=== PATIENT | female | born 1945 | race Caucasian/White ===

== ENCOUNTER 2025-06-10 18:57 | Inpatient (IN) ==
--- NOTE | 2025-06-10 19:06 | Emergency Department Note ---
Impression & Plan Pneumonia, Rhinovirus infection, Generalized weakness ED Provider Note NAME: LOS MIKE AGE: 80 SEX: F : 1945 ARRIVES VIA: Ambulance INFORMANT: Patient ED PROVIDER(S): Pratik Jackson MD CHIEF COMPLAINT: Fatigue PLAN: Disposition: Admit MEDICAL DECISION MAKING: The patient is a pleasant 80-year-old woman with a past medical history of hypertension, GERD, fibromyalgia, arthritis atrial fibrillation not on anticoagulation, recurrent UTIs who presents to the emergency department via EMS for evaluation of generalized weakness and fatigue where she reports wanting to sleep all the time for the past 24 hours. Patient denies any headache, GI or symptoms. She reports she recently had a cystoscopy for evaluation of her chronic urinary tract infections. She was prescribed Macrobid prophylactically after her procedure. She denies any chest pain, shortness of breath, cough or congestion. On evaluation patient is no acute distress, afebrile with heart in the 110s and blood pressure 140s/80s and vital signs otherwise stable. She appears clinically dry. Lungs with subtle rhonchi of right lower lung randolph and otherwise clear. Normal respiratory effort. EKG without overt acute ischemia. CXR with patchy right lower lobe opacity suspicious for pneumonia per my personal preliminary review/interpretation. WBC 16.7 K with neutrophilia but no left shift, nonspecific. H/H and platelets within normal limits. Chemistry without metabolic acidosis. BUNs/creatinine 21 consistent with patient's clinically dry appearance. Lactic acid 1.1, within normal limits. LFTs unremarkable. High-sensitivity troponin 7.3, within normal limits. Lipase is not elevated. Procalcitonin is elevated at 1.06. TSH within normal limits. UA without evidence of infection. Respiratory bio was positive for enterovirus/rhinovirus. Blood culture obtained empiric treatment initiated for pneumonia with IV Zosyn and doxycycline. MRSA swab is pending. Patient does agree with plan for admission for further management. Case was [place] [facility] who will evaluate the patient for admission. Further management per admitting team. Triage Nursing notes reviewed and agree them. Prior/external medical records reviewed Vital Signs: reviewed Differential diagnosis: Infection, dehydration, metabolic abnormality, hypo/hyperglycemia, electrolyte disturbance, anemia, hypoxia, cardiac sources, intracerebral event, toxicologic, neurologic, as well as other pathologies. ER treatment provided: See below. Diagnostics interpreted by me: ECG: Atrial fibrillation, 103 bpm, no ectopy, no overt ST elevation or depression, QTc 419, QRS 94. Cardiac Monitoring: An order for continuous cardiac monitoring was placed and demonstrated Atrial fibrillation, 103 bpm, no ectopy. Laboratory studies: See below Imaging studies: See below Consultation(s): Case was discussed [place]. Ponce, [facility], who will evaluate the patient for admission. HPI: Per MDM. ROS: See above HPI for pertinent positives & negatives. A total of 10 systems reviewed and were otherwise negative. VITALS:See Below PHYSICAL EXAMINATION: GENERAL: Awake, alert, fatigued-appearing, in no distress HENT: Normocephalic, atraumatic. Oropharynx with dry mucous membranes and otherwise unremarkable. EYES: Normal conjunctiva. Sclera non-icteric. EOMI. No nystamgus. PEARRL. NECK: Supple. No nuchal rigidity. FROM. No JVD. RESPIRATORY: Rhonchi of right lower lung randolph and otherwise clear to auscultation. CARDIAC: Regular rate, irregular rhythm. Extremities warm and well perfused. Pulses equal. ABDOMEN: Soft, non-distended. No tenderness to palpation. No rebound or guarding. No masses. MUSCULOSKELETAL: Chest examination reveals no tenderness. The back is symmetrical on inspection without obvious abnormality. There is no CVA tenderness to palpation. No joint edema. LOWER EXTREMITIES: Calves are equal size bilaterally and non-tender. No edema. No discoloration. NEURO: Cranial nerves II-XII grossly intact. 5/5 strength and SILT x 4 extremities. Intact [id number], SKIN: No rash or jaundice noted. Pratik Jackson MD Past Med/Surg History Problem List (Updated 06/11/25 @ 02:18 by Pratik Jackson MD) Generalized weakness (Acute) Rhinovirus infection (Acute) Pneumonia (Acute) Hypomagnesemia Leukocytosis Right lower lobe pneumonia Renal cyst (Chronic) Cirrhosis Hyperbilirubinemia Raynaud's disease, idiopathic Incontinence (Chronic) Recurrent UTI (urinary tract infection) (Chronic) Lumbosacral radiculopathy Numbness and tingling of both feet B12 deficiency Facet arthritis of lumbar region Chronic back pain Varicose veins of both lower extremities Arthritis of left shoulder region Depression Obstructive sleep apnea T2DM (type 2 diabetes mellitus) Frequent urinary tract infections Anemia Multiple thyroid nodules Paroxysmal A-fib Barretts esophagus Anxiety Asthma Degenerative disc disease Fibromyalgia (Acute) GERD (gastroesophageal reflux disease) Hypertension Insomnia Vitamin D deficiency Medical History History of non-ST elevation myocardial infarction (NSTEMI) (07/2019) History of TIA (transient ischemic attack) (12/2023) History of breast cancer Surgical History S/P cataract extraction (2023) History of hand surgery Status post right breast lumpectomy (2001) History of cardioversion History of esophageal surgery S/P arthroscopy of right shoulder S/P tonsillectomy and adenoidectomy S/P cholecystectomy History of appendectomy S/P total hysterectomy and BSO (bilateral salpingo-oophorectomy) S/P bunionectomy S/P left knee arthroscopy (2018) Presence of Watchman left atrial appendage closure device (2016) S/P breast lumpectomy (09/2017) Family History Sister Colorectal cancer Mother Cancer Father Bone cancer Daughter Rheumatoid arthritis Denies family history of Ovarian cancer Prostate cancer Myocardial infarction Breast cancer Lung cancer Social History Smoking Status: Former smoker Tobacco Type: Cigarettes Age Started Using Tobacco: 19; Age Quit Using Tobacco: 27; packs per day: 0.25; Cigarettes Per Day: smoked on/ off for; could not give year amount; Second Hand Exposure: No; Do You Dip or Chew Tobacco: No; Hx Alcohol Use: No Hx Substance Use: No Preferred Language: [place] Communication Ability: Effective Visual Impairment: No Limitations Hearing Ability: Normal Physician Coding Specialist Required: No Beliefs That Will Affect Care: None marital status: Current Living Situation: Spouse Current Living Situation Comment: with spouse current occupational status: retired 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 How many Children do You have: 5 Other Information That Helps Us Care for You: No Feels Safe at Home: Hesitant to Answer Childhood Exposure to Second-Hand Smoke: No Diet: regular Diet Comment: soft food during the past year weight has: remained stable Dental Care, Regularly: No Physical Activity Frequency: Does not Exercise Physical Activity Frequency Comment: limited d/t body pain Seatbelt Use: always Sunscreen Use: Yes Assistive Devices: Cane, Denture - Upper, Denture - Lower and Walker Allergies Allergies Allergy/AdvReac Type Severity Reaction Status Date / Time amitriptyline Allergy Intermediate DIARRHEA Verified 04/10/25 10:45 AND ABD PAIN amoxicillin Allergy Intermediate DIARRHEA Verified 04/10/25 10:45 AND ABD PAIN cefuroxime Allergy Intermediate DIARRHEA Verified 04/10/25 10:45 AND ABD PAIN clavulanic acid Allergy Intermediate DIARRHEA Verified 04/10/25 10:45 AND ABD PAIN escitalopram [From Lexapro] Allergy Mild Dizziness Verified 04/10/25 10:45 adhesive Allergy Unknown SKIN RED Verified 04/10/25 10:45 AND WELTS clarithromycin Allergy Unknown SEVERE Verified 04/10/25 10:45 DIARRHEA AND ABD PAIN erythromycin base Allergy Unknown Unknown Verified 06/10/25 22:36 Macrolide Antibiotics Allergy Unknown SEVERE Verified 04/10/25 10:45 DIARRHEA AND ABD PAIN Sulfa (Sulfonamide Allergy Unknown RASH;DIFFICULTY Verified 04/10/25 10:45 Antibiotics) BREATHING tetracycline Allergy Unknown NAUSEA AND Verified 04/10/25 10:45 VOMITING Home Meds Home Medications Medication Instructions Recorded Confirmed albuterol sulfate 2.5 mg/3 mL 2.5 mg inhalation Q4H PRN 05/21/19 06/10/25 (0.083 %) solution for nebulization shortness of breath or wheezing cholecalciferol (vitamin D3) 50 2,000 units PO QAM 05/21/19 06/10/25 mcg (2,000 unit) capsule metoprolol succinate 50 mg 50 mg PO DAILY 12/19/20 06/10/25 tablet,extended release 24 hr rabeprazole 20 mg tablet,delayed 20 mg PO BID 12/31/22 06/10/25 release (AcipHex) clonidine HCl 0.1 mg tablet 0.1 mg PO TID PRN withdrawl 10/18/24 06/10/25 symptoms buprenorphine 300 mg/1.5 mL 300 mg subcut UD 06/10/25 06/10/25 solution,exten.rel.subcutaneous syringe (Sublocade) buprenorphine HCl 8 mg sublingual 4 mg sublingual BID 06/10/25 06/10/25 tablet vitamin B complex 1 tab PO DAILY 06/10/25 06/10/25 Previous Rx's Medication Instructions Recorded albuterol sulfate 90 mcg/actuation See Rx Instructions inhalation 11/02/22 aerosol inhaler (Ventolin HFA) .COMPLEX PRN shortness of breath or wheezing #18 grams famotidine 20 mg tablet (Pepcid) 20 mg PO BID #180 tabs 04/09/25 mirabegron 50 mg tablet,extended 50 mg PO DAILY #90 tabs 04/10/25 release 24 hr (Myrbetriq) nitrofurantoin macrocrystal 50 mg 50 mg PO Q24H #30 caps 06/04/25 capsule Results & Data (ED) Vital Signs Vital Signs - 24 hr 06/10/25 19:09 06/10/25 22:21 Temperature 36.8 C Temperature Source Oral Pulse Rate 112 H 104 H Pulse Rhythm Irregular Respiratory Rate 14 Respiratory Effort / Characteristics Non-Labored Spontaneous Respiratory Depth Normal Blood Pressure 145/89 H Blood Pressure Mean 107 Pulse Oximetry 98 Oxygen Delivery Method Room Air Sepsis Recent Fever Within 48 Hours No Sepsis New/Unexplained Change in Mental Status No Sepsis Action Taken by Nursing No Action Required Laboratory Data Attestation: I reviewed the patient's lab results. 06/10/25 19:42 06/10/25 19:42 Lab Results 06/10/25 06/10/25 06/10/25 Range/Units 19:40 19:42 20:00 WBC 16.72 H (4.8-10.8) K/ul RBC 4.41 (4.20-5.40) M/uL Hgb 12.1 (12.0-16.0) g/dl Hct 37.4 (37.0-47.0) % MCV 84.8 (80.0-100.0) fL MCH 27.4 (25.0-34.0) pg MCHC 32.4 (32.0-36.0) g/dL RDW Std Deviation 43.2 (36.4-46.3) fL RDW Coeff of Scooter 14.0 (11.5-14.5) % Plt Count 207 (130-400) K/uL MPV 9.9 (9.4-12.4) fL Immature Gran % (Auto) 0.3 % Neut % (Auto) 88.5 % Lymph % (Auto) 6.0 % [place] % (Auto) 5.0 % Eos % (Auto) 0.0 % Baso % (Auto) 0.2 % Neut # (Auto) 14.79 H (1.40-6.50) K/uL Lymph # (Auto) 1.00 L (1.20-3.40) K/uL [place] # (Auto) 0.84 H (0.11-0.59) K/uL Eos # (Auto) 0.00 (0.00-0.50) K/uL Baso # (Auto) 0.04 (0.00-0.20) K/uL Immature Gran # (Auto) 0.05 (0.01-0.20) K/uL PT Cancelled INR Cancelled Sodium 135 L (136-145) mmol/L Potassium 3.7 (3.5-5.1) mmol/L Chloride 101 (98-107) mmol/L Carbon Dioxide 26 (21-32) mmol/L Anion Gap 8 (3-11) BUN 20 (6-23) mg/dl Creatinine 0.93 (0.6-1.2) mg/dl Est Cr Clr Drug Dosing 37.5 ml/min eGFR 61.75 BUN/Creatinine Ratio 21.5 H (10-20) Glucose 140 H (70-99(Fasting)) mg/dl Calcium 9.2 (8.6-10.3) mg/dl Phosphorus 2.3 L (2.5-4.9) mg/dl Magnesium 1.6 L (1.7-2.4) mg/dl Total Bilirubin 3.0 H (0.2-1.0) mg/dl AST 36 (13-39) U/L ALT 29 (7-52) U/L Alkaline Phosphatase 67 (34-104) U/L Troponin I High Sens 7.3 (0-14) pg/ml Total Protein 6.6 (6.0-8.3) gm/dl Albumin 3.8 (3.4-5.0) gm/dl Globulin 2.8 (2.5-4.0) gm/dl Albumin/Globulin Ratio 1.4 (0.9-2) Lipase 5 L (11-82) U/L Procalcitonin 1.06 H (0-0.5) ng/ml TSH 0.835 (0.300-4.500) uIu/ml Urine Color Yellow Urine Appearance Clear (Clear) Urine pH 6.0 (4.5-7.5) Ur Specific [place] 1.010 (1.000-1.030) Urine Protein Negative (Negative) Urine Glucose (UA) Negative (Negative) Urine Ketones Negative (Negative) Urine Blood 1+ H (Negative) Urine Nitrite Negative (Negative) Urine Bilirubin Negative (Negative) Urine Urobilinogen Negative (Negative) Ur Leukocyte Esterase Negative (Negative) Urine WBC (Auto) 0-5 (0-5) /hpf Urine RBC (Auto) 0-2 (0-2) /hpf U Hyaline Cast (Auto) 0-2 (0-2) /lpf U Epithel Cells (Auto) 0-2 (0-2) /hpf Urine Bacteria (Auto) None Seen (None Seen) Urine Comment 06/10/25 Range/Units 21:11 WBC (4.8-10.8) K/ul RBC (4.20-5.40) M/uL Hgb (12.0-16.0) g/dl Hct (37.0-47.0) % MCV (80.0-100.0) fL MCH (25.0-34.0) pg MCHC (32.0-36.0) g/dL RDW Std Deviation (36.4-46.3) fL RDW Coeff of Scooter (11.5-14.5) % Plt Count (130-400) K/uL MPV (9.4-12.4) fL Immature Gran % (Auto) % Neut % (Auto) % Lymph % (Auto) % [place] % (Auto) % Eos % (Auto) % Baso % (Auto) % Neut # (Auto) (1.40-6.50) K/uL Lymph # (Auto) (1.20-3.40) K/uL [place] # (Auto) (0.11-0.59) K/uL Eos # (Auto) (0.00-0.50) K/uL Baso # (Auto) (0.00-0.20) K/uL Immature Gran # (Auto) (0.01-0.20) K/uL PT 11.9 INR 1.1 Sodium (136-145) mmol/L Potassium (3.5-5.1) mmol/L Chloride (98-107) mmol/L Carbon Dioxide (21-32) mmol/L Anion Gap (3-11) BUN (6-23) mg/dl Creatinine (0.6-1.2) mg/dl Est Cr Clr Drug Dosing ml/min eGFR BUN/Creatinine Ratio (10-20) Glucose (70-99(Fasting)) mg/dl Calcium (8.6-10.3) mg/dl Phosphorus (2.5-4.9) mg/dl Magnesium (1.7-2.4) mg/dl Total Bilirubin (0.2-1.0) mg/dl AST (13-39) U/L ALT (7-52) U/L Alkaline Phosphatase (34-104) U/L Troponin I High Sens (0-14) pg/ml Total Protein (6.0-8.3) gm/dl Albumin (3.4-5.0) gm/dl Globulin (2.5-4.0) gm/dl Albumin/Globulin Ratio (0.9-2) Lipase (11-82) U/L Procalcitonin (0-0.5) ng/ml TSH (0.300-4.500) uIu/ml Urine Color Urine Appearance (Clear) Urine pH (4.5-7.5) Ur Specific [place] (1.000-1.030) Urine Protein (Negative) Urine Glucose (UA) (Negative) Urine Ketones (Negative) Urine Blood (Negative) Urine Nitrite (Negative) Urine Bilirubin (Negative) Urine Urobilinogen (Negative) Ur Leukocyte Esterase (Negative) Urine WBC (Auto) (0-5) /hpf Urine RBC (Auto) (0-2) /hpf U Hyaline Cast (Auto) (0-2) /lpf U Epithel Cells (Auto) (0-2) /hpf Urine Bacteria (Auto) (None Seen) Urine Comment Administered Medications Discontinued Medications Sodium Chloride (Nss) 1,000 mls @ 999 mls/hr IV .Q1H1M ONE Stop: 06/10/25 20:22 Last Infusion: 06/10/25 21:10 Dose: Infused Documented By: Admin: 06/10/25 19:41 Dose: 999 mls/hr Documented By: JAMIE Acetaminophen (Ofirmev) 1,000 mg in 100 mls @ 400 mls/hr IV NOW STA Stop: 06/10/25 21:50 Last Infusion: 06/10/25 23:47 Dose: Infused Documented By: Admin: 06/10/25 22:19 Dose: 400 mls/hr Documented By: JAMIE Piperacillin Sod/Tazobactam Sod (Zosyn) 4.5 gm in 100 mls @ 200 mls/hr IV NOW ONE; Protocol Stop: 06/10/25 22:05 Last Infusion: 06/11/25 00:05 Dose: Infused Documented By: Admin: 06/10/25 23:23 Dose: 200 mls/hr Documented By: JAMIE Doxycycline Hyclate 100 mg/ (Dextrose) 100 mls @ 50 mls/hr IV NOW STA Stop: 06/10/25 23:35 Last Infusion: 06/11/25 02:07 Dose: Infused Documented By: Admin: 06/11/25 00:02 Dose: 50 mls/hr Documented By: JAMIE Magnesium Sulfate/Dextrose (Magnesium Sulfate / D5w) 1 gm in 100 mls @ 50 mls/hr IV Q2H [facility] Stop: 06/11/25 02:29 Last Infusion: 06/11/25 04:28 Dose: Infused Documented By: Admin: 06/11/25 02:17 Dose: 50 mls/hr Documented By: Infusion: 06/11/25 02:02 Dose: Infused Documented By: Admin: 06/11/25 00:02 Dose: 50 mls/hr Documented By: JAMIE Imaging Data Radiologist's Impression: Chest X-Ray 06/10/25 19:20 Chest radiograph, one view History: Chest pain Comparison: 04/25/2024 Findings: Single AP view of the chest performed. Cardiomegaly. There are new mild patchy nodular densities in the right lower lobe. Normal pulmonary vascularity. No evidence for lymphadenopathy. No visualized bony or soft tissue abnormality. Impression: New, mild patchy nodular densities in the right lower lobe, favored infectious. Electronically signed by Barrett Casey 06-10-2025 7:50 PM Discharge Plan Visit Data Chief Complaint: Illness Stated Complaint: HEADACHE ED Provider: Pratik Jackson Discharge Problem: Pneumonia, Rhinovirus infection, Generalized weakness Patient Disposition: Admitted As Inpatient Condition: Fair Discharge Instructions Interventions: ED Discharge Assessment Last Done: 06/10/25 22:57 Discharge Problem: Pneumonia Qualifiers: Pneumonia type: due to unspecified organism Laterality: right Lung location: l ower lobe of lung Qualified Code(s): J18.9 - Pneumonia, unspecified organism
[2025-06-10] MEDS: SODIUM CHLORIDE 0.9% 1,000 ML IV ONE (19:41)
--- NOTE | 2025-06-10 19:50 | XRay Report ---
Chest radiograph, one view History: Chest pain Comparison: 04/25/2024 Findings: Single AP view of the chest performed. Cardiomegaly. There are new mild patchy nodular densities in the right lower lobe. Normal pulmonary vascularity. No evidence for lymphadenopathy. No visualized bony or soft tissue abnormality. Impression: New, mild patchy nodular densities in the right lower lobe, favored infectious. Electronically signed by Barrett Casey 06-10-2025 7:50 PM
[2025-06-10 19:57] LABS: Hematocrit (blood only) 37.4 % (37.0-47.0); Hemoglobin 12.1 g/dl (12.0-16.0); Immature Granulocytes # (auto) 0.05 K/uL (0.01-0.20); Immature Granulocytes % (auto) 0.3 %; Mean Corpuscular Hemoglobin 27.4 pg (25.0-34.0); Mean Corpuscular Volume 84.8 fL (80.0-100.0); Platelet Count 207 K/uL (130-400); RDW Standard Deviation 43.2 fL (36.4-46.3); Red Blood Count 4.41 M/uL (4.20-5.40); White Blood Count 16.72 K/ul (4.8-10.8)
[2025-06-10 20:14] LABS: Alanine Aminotransferase 29.0 U/L (7-52); Albumin Globulin Ratio 1.4 (0.9-2); Albumin Level 3.8 gm/dl (3.4-5.0); Alkaline Phosphatase 67.0 U/L (34-104); Anion Gap 8.0 (3-11); Bilirubin,Total 3.0 mg/dl (0.2-1.0); Blood Urea Nitrogen 20.0 mg/dl (6-23); Calcium 9.2 mg/dl (8.6-10.3); Carbon Dioxide 26.0 mmol/L (21-32); Chloride 101.0 mmol/L (98-107); Creatinine Clr Calc Pharmacy 37.5 ml/min; Globulin 2.8 gm/dl (2.5-4.0); Glucose 140.0 mg/dl (70-99(Fasting)); Lipase 5.0 U/L (11-82); Magnesium 1.6 mg/dl (1.7-2.4); Potassium 3.7 mmol/L (3.5-5.1); Sodium 135.0 mmol/L (136-145); Total Protein 6.6 gm/dl (6.0-8.3)
[2025-06-10 20:29] LABS: Appearance Urine Clear (Clear); Glucose Urine UA Negative (Negative)
[2025-06-10 20:30] LABS: Thyroid Stimulating Hormone 0.835 uIu/ml (0.300-4.500)
[2025-06-10 20:46] LABS: Bacteria Urine Automated None Seen (None Seen); Cast Urine Automated 0-2 /lpf (0-2); Epithelial Cell Urine Auto 0-2 /hpf (0-2); RBC Urine Automated 0-2 /hpf (0-2); WBC Urine Automated 0-5 /hpf (0-5)
[2025-06-10 21:50] LABS: INR 1.1 (0.9-1.1); Prothrombin Time 11.9 Seconds (9.0-12.0)
[2025-06-10] MEDS: ACETAMINOPHEN 1,000 MG/100 ML VIAL IV STA (22:19)
--- NOTE | 2025-06-10 22:46 | History & Physical Report ---
Date of Service June 10, 2025 Assessment & Plan (1) Right lower lobe pneumonia: (2) Leukocytosis: (3) Hypomagnesemia: (4) Obstructive sleep apnea: (5) T2DM (type 2 diabetes mellitus): (6) Chronic back pain: (7) Barretts esophagus: (8) Paroxysmal A-fib: Plan 80 yo F who presents with increased lethargy, chills, and dyspnea who is found to have a RLL pneumonia #RLL Pneumonia with leukocytosis, possible aspiration - Admit to med/tele - VS per unit protocol - Diet - Carb consistent - OOB w/ assist - Change abx to Unasyn 3g q6 - Duonebs QIDR and q2 prn dyspnea/wheezing - Mucinex 600mg BID - Speech eval, appreciate input - Support O2 to keep sat >92% - Blood cultures ordered/collected x2 - PCT elevated - MRSA nares collected, pending - Trend labs with CBC, CMP in AM #Hypomagnesemia - Low at 1.6, replacement ordered - Repeat mag in AM #Chronic Afib - S/P watchman, not on ACT - [facility] - Continue Metoprolol Succ 50mg daily - VR elevated in setting of acute infection, monitor #Chronic back pain/fibromyalgia - Continue Buprenorphine #Urge incontinence - Continue mirabegron #Ayala's esophagus - Continue famotidine - Change rabeprazole to pantoprazole per hospital formulary VTE ppx - Lovenox 40mg sq daily to start in AM Code status - Full Above plan of care has been d/w Dr. Ponce who will also see and evaluate this patient. Further orders will be implemented as clinically warranted. History of Present Illness Chief Complaint: Lethargy Primary Care Provider: Ga Agarwal DO Crissy is an 80 yo F with a pmhx of chronic afib, DMT2 (diet controlled), Ayala's esophagus, chronic back pain, CAED, asthma and recurrent cystitis who presents to the ER accompanied by her family c/o increased lethargy over the past 48 hours. Pt reportedly notes increased fatigue, drowsiness over the past 48 hours. She has had c/o chills and increased dyspnea with exertional activities, but denies chest pain. She reports her has had a cough but she has not. She has not checked her temperature so is unsure if she actually had a true fever. She did endorse some GI illness including n/v about 2 weeks ago but none recently. She has a h/o Ayala's esophagus and underwent surgery in 2017. She has also had her esophagus dilated about 1 year ago and admittedly has some issues with swallowing and choking at times. In the ER this evening, she has a RLL infiltrate favoring infection as well as a leukocytosis with neutrophilic predominance and an elevated PCT. She was medicated with Zosyn and Doxycycline IV in the ER as well as received a dose of IV Ofirmev and NSS. She has been referred to hospital medicine team for further care. Allergies Allergy/AdvReac Type Severity Reaction Status Date / Time amitriptyline Allergy Intermediate DIARRHEA Verified 04/10/25 10:45 AND ABD PAIN amoxicillin Allergy Intermediate DIARRHEA Verified 04/10/25 10:45 AND ABD PAIN cefuroxime Allergy Intermediate DIARRHEA Verified 04/10/25 10:45 AND ABD PAIN clavulanic acid Allergy Intermediate DIARRHEA Verified 04/10/25 10:45 AND ABD PAIN escitalopram [From Lexapro] Allergy Mild Dizziness Verified 04/10/25 10:45 adhesive Allergy Unknown SKIN RED Verified 04/10/25 10:45 AND WELTS clarithromycin Allergy Unknown SEVERE Verified 04/10/25 10:45 DIARRHEA AND ABD PAIN erythromycin base Allergy Unknown Unknown Verified 06/10/25 22:36 Macrolide Antibiotics Allergy Unknown SEVERE Verified 04/10/25 10:45 DIARRHEA AND ABD PAIN Sulfa (Sulfonamide Allergy Unknown RASH;DIFFICULTY Verified 04/10/25 10:45 Antibiotics) BREATHING tetracycline Allergy Unknown NAUSEA AND Verified 04/10/25 10:45 VOMITING Home Medications Medication Instructions Recorded Confirmed Type albuterol sulfate 2.5 mg/3 mL 2.5 mg inhalation Q4H PRN 05/21/19 06/10/25 History (0.083 %) solution for nebulization shortness of breath or wheezing cholecalciferol (vitamin D3) 50 2,000 units PO QAM 05/21/19 06/10/25 History mcg (2,000 unit) capsule metoprolol succinate 50 mg 50 mg PO DAILY 12/19/20 06/10/25 History tablet,extended release 24 hr albuterol sulfate 90 mcg/actuation See Rx Instructions inhalation 11/02/22 06/10/25 Rx aerosol inhaler (Ventolin HFA) .COMPLEX PRN shortness of breath or wheezing #18 grams rabeprazole 20 mg tablet,delayed 20 mg PO BID 12/31/22 06/10/25 History release (AcipHex) clonidine HCl 0.1 mg tablet 0.1 mg PO TID PRN withdrawl 10/18/24 06/10/25 History symptoms famotidine 20 mg tablet (Pepcid) 20 mg PO BID #180 tabs 04/09/25 06/10/25 Rx mirabegron 50 mg tablet,extended 50 mg PO DAILY #90 tabs 04/10/25 06/10/25 Rx release 24 hr (Myrbetriq) nitrofurantoin macrocrystal 50 mg 50 mg PO Q24H #30 caps 06/04/25 06/10/25 Rx capsule buprenorphine 300 mg/1.5 mL 300 mg subcut UD 06/10/25 06/10/25 History solution,exten.rel.subcutaneous syringe (Sublocade) buprenorphine HCl 8 mg sublingual 4 mg sublingual BID 06/10/25 06/10/25 History tablet vitamin B complex 1 tab PO DAILY 06/10/25 06/10/25 History Past Med/Surg History Problem List (Updated 06/11/25 @ 02:18 by Pratik Jackson MD) Generalized weakness (Acute) Rhinovirus infection (Acute) Pneumonia (Acute) Hypomagnesemia Leukocytosis Right lower lobe pneumonia Renal cyst (Chronic) Cirrhosis Hyperbilirubinemia Raynaud's disease, idiopathic Incontinence (Chronic) Recurrent UTI (urinary tract infection) (Chronic) Lumbosacral radiculopathy Numbness and tingling of both feet B12 deficiency Facet arthritis of lumbar region Chronic back pain Varicose veins of both lower extremities Arthritis of left shoulder region Depression Obstructive sleep apnea T2DM (type 2 diabetes mellitus) Frequent urinary tract infections Anemia Multiple thyroid nodules Paroxysmal A-fib Barretts esophagus Anxiety Asthma Degenerative disc disease Fibromyalgia (Acute) GERD (gastroesophageal reflux disease) Hypertension Insomnia Vitamin D deficiency Medical History History of non-ST elevation myocardial infarction (NSTEMI) (07/2019) History of TIA (transient ischemic attack) (12/2023) History of breast cancer Surgical History S/P cataract extraction (2023) History of hand surgery Status post right breast lumpectomy (2001) History of cardioversion History of esophageal surgery S/P arthroscopy of right shoulder S/P tonsillectomy and adenoidectomy S/P cholecystectomy History of appendectomy S/P total hysterectomy and BSO (bilateral salpingo-oophorectomy) S/P bunionectomy S/P left knee arthroscopy (2018) Presence of Watchman left atrial appendage closure device (2016) S/P breast lumpectomy (09/2017) Family History Sister Colorectal cancer Mother Cancer Father Bone cancer Daughter Rheumatoid arthritis Denies family history of Ovarian cancer Prostate cancer Myocardial infarction Breast cancer Lung cancer Social History Smoking Status: Former smoker Tobacco Type: Cigarettes Age Started Using Tobacco: 19; Age Quit Using Tobacco: 27; packs per day: 0.25; Cigarettes Per Day: smoked on/ off for; could not give year amount; Second Hand Exposure: No; Do You Dip or Chew Tobacco: No; Hx Alcohol Use: No Hx Substance Use: No Preferred Language: Vietnamese Communication Ability: Effective Visual Impairment: No Limitations Hearing Ability: Normal Pomologist Required: No Beliefs That Will Affect Care: None marital status: Current Living Situation: Spouse Current Living Situation Comment: with spouse current occupational status: retired 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 How many Children do You have: 5 Other Information That Helps Us Care for You: No Feels Safe at Home: Hesitant to Answer Childhood Exposure to Second-Hand Smoke: No Diet: regular Diet Comment: soft food during the past year weight has: remained stable Dental Care, Regularly: No Physical Activity Frequency: Does not Exercise Physical Activity Frequency Comment: limited d/t body pain Seatbelt Use: always Sunscreen Use: Yes Assistive Devices: Cane, Denture - Upper, Denture - Lower and Walker Review of Systems 2 Review of Systems: All systems reviewed and are unremarkable except as noted in HPI and below. Denies fever, headache, nasal congestion, sore throat, cough, chest pain, orthopnea, PND, abdominal pain, n/v/d, constipation, dysuria, hematuria, frequency, back pain, joint pain or swelling, easy bruising or bleeding, skin lesions or rashes. Physical Exam 2 Physical Exam: GENERAL: 80 yo elderly WF. A&Ox3. No distress. EYES: EOMI. PERRLA. Anicteric. HENT: Moist mucous membranes. No cervical lymphadenopathy. LUNGS: Nonlabored. RLL crackles. No rhonchi or wheezes throughout. CARDIOVASCULAR: Irregular rate and rhythm ABDOMEN: Soft, non-tender and non-distended. BS normoactive x 4 quad. EXTREMITIES: No edema. Non-tender. Peripheral pulses +2/4. NEUROLOGIC: No focal neurological deficits. CN II-XII grossly intact. PSYCHIATRIC: Cooperative. Appropriate mood and affect. SKIN: Warm, dry, intact. No rashes or lesions. Results & Data Results & Data Vital Signs (Past 12 Hours) Vital Signs Temp Pulse Pulse Resp BP BP Pulse Ox 06/10/25 22:28 107 H 18 128/76 97 06/10/25 22:21 104 H 06/10/25 19:09 36.8 C 112 H 14 145/89 H 98 O2 Del Method 06/10/25 22:28 Room Air 06/10/25 22:21 06/10/25 19:09 Room Air Laboratory Results 06/10/25 19:42 06/10/25 19:42 Diagnostic Findings Chest X-Ray 06/10/25 19:20 Chest radiograph, one view History: Chest pain Comparison: 04/25/2024 Findings: Single AP view of the chest performed. Cardiomegaly. There are new mild patchy nodular densities in the right lower lobe. Normal pulmonary vascularity. No evidence for lymphadenopathy. No visualized bony or soft tissue abnormality. Impression: New, mild patchy nodular densities in the right lower lobe, favored infectious. Electronically signed by Barrett Casey 06-10-2025 7:50 PM Code Status & VTE Plan Code Status Full code - per discussion with patient and daughter VTE Prophylaxis Plan VTE Prophylaxis will be ordered: Yes Supervising Physician Co-Signing Physician Notes Attending addendum: I have physically seen this patient, have supervised the DIANA's activities, and agree with the H&P unless as otherwise noted. Assessment and Plan: The patient is an 80-year-old female with past medical history including liver cirrhosis, hyperbilirubinemia, idiopathic Raynaud's disease, recurrent UTI, CADE, diabetes mellitus type 2, PAF, asthma, GERD, and hypertension. She presented to the emergency department with increased lethargy, fevers, chills and dyspnea on exertion. Workup in the emergency department included WBC of 16.72, and chest x-ray suggestive of right lower lobe. [facility]. Right lower lobe pneumonia- WBC 16.72 with left shift Aspiration precautions Unasyn 3 g IV every 6 hours Duonebs every 4 hours while awake and every 2 hours when necessary. Mucinex 600 mg p.o. twice daily Consult speech therapy Oxygen titration to maintain pulse ox of at least 92% Follow-up blood cultures MRSA ordered and pending Serial laboratories as noted Hypomagnesemia- Magnesium 1.6 on admission Oral replacement Repeat laboratories in the a.m. Chronic atrial fibrillation/status post Watchman- Follows with Dr. Rodriguez at [facility] [place] Continue metoprolol Chronic pain syndrome/back pain/fibromyalgia- Continue buprenorphine once verified Ayala's esophagus/GERD- Continue famotidine Change rabeprazole to pantoprazole per formulary interchange Urge incontinence/recurrent UTIs- UA is negative Follow urine culture sensitivity Hold nitrofurantoin PG Care Time/CCT Total # of Minutes Spent Total Time Spent with Patient: Total time spent is greater than 50% in coordination of care (as documented) at patient's floor/unit and/or counseling patient: 78 minutes Coding Level of Care Code 55856 INT INP/OBS CARE 3/75MIN Diagnoses Right lower lobe pneumonia J18.9 Leukocytosis D72.829 Hypomagnesemia E83.42 Obstructive sleep apnea G47.33 T2DM (type 2 diabetes mellitus) E11.9 Chronic back pain M54.9; G89.29 Barretts esophagus K22.70 Paroxysmal A-fib I48.0
[2025-06-10] MEDS ORDERED: ACETAMINOPHEN 325 MG TAB PO PRN (22:57)
[2025-06-10] MEDS ORDERED: ONDANSETRON INJ 2 MG/ML 2 ML VIAL IV PRN (22:57)
[2025-06-10] MEDS: PIPERACILLIN/TAZOBACTAM 4.5 GM/100 ML BAG IV ONE (23:23)
[2025-06-10 23:34] LABS: Chlamydia pneumoniae PCR Not Detected (NotDetected); Coronavirus 229E PCR Not Detected (NotDetected); Coronavirus CoV-2 (COVID19)PCR Not Detected (NotDetected); Coronavirus HKU1 PCR Not Detected (NotDetected); Coronavirus NL63 PCR Not Detected (NotDetected); Coronavirus OC43PCR Not Detected (NotDetected); Human Metapneumovirus PCR Not Detected (NotDetected); Parainfluenza Virus 1 PCR Not Detected (NotDetected); Parainfluenza Virus 2 PCR Not Detected (NotDetected); Parainfluenza Virus 3 PCR Not Detected (NotDetected); Parainfluenza Virus 4 PCR Not Detected (NotDetected); Respiratory Syncytial VirusPCR Not Detected (NotDetected); Rhinovirus/Enterovirus PCR DETECTED (NotDetected)
[2025-06-11] MEDS: MAGNESIUM SULFATE / D5W 1 GM/100 ML BAG IV SCH (00:02)
[2025-06-11] MEDS: DOXYCYCLINE HYCLATE 100 MG in DEXTROSE 5% MINI-B 100 ML IV STA (00:02)
[2025-06-11] MEDS: AMPICILLIN/SULBACTAM SOD 3,000 MG/100 ML BAG IV SCH (06:23)
[2025-06-11] MEDS: ALBUT/IPRATROP 3MG/0.5MG NEB 3 ML VIAL NEB SCH (07:20)
[2025-06-11 07:23] LABS: Hematocrit (blood only) 35.0 % (37.0-47.0); Hemoglobin 11.3 g/dl (12.0-16.0); Immature Granulocytes # (auto) 0.06 K/uL (0.01-0.20); Immature Granulocytes % (auto) 0.4 %; Mean Corpuscular Hemoglobin 27.6 pg (25.0-34.0); Mean Corpuscular Volume 85.4 fL (80.0-100.0); Platelet Count 199 K/uL (130-400); RDW Standard Deviation 44.1 fL (36.4-46.3); Red Blood Count 4.10 M/uL (4.20-5.40); White Blood Count 14.15 K/ul (4.8-10.8)
[2025-06-11 07:42] LABS: Alanine Aminotransferase 20.0 U/L (7-52); Albumin Globulin Ratio 1.2 (0.9-2); Albumin Level 3.3 gm/dl (3.4-5.0); Alkaline Phosphatase 59.0 U/L (34-104); Anion Gap 6.0 (3-11); Bilirubin,Total 3.4 mg/dl (0.2-1.0); Blood Urea Nitrogen 16.0 mg/dl (6-23); Calcium 8.8 mg/dl (8.6-10.3); Carbon Dioxide 27.0 mmol/L (21-32); Chloride 108.0 mmol/L (98-107); Creatinine Clr Calc Pharmacy 43.4 ml/min; Globulin 2.8 gm/dl (2.5-4.0); Glucose 100.0 mg/dl (70-99(Fasting)); Magnesium 2.3 mg/dl (1.7-2.4); Potassium 3.3 mmol/L (3.5-5.1); Sodium 141.0 mmol/L (136-145); Total Protein 6.1 gm/dl (6.0-8.3)
[2025-06-11] MEDS: ENOXAPARIN INJ 40 MG/0.4 ML SYR SQ SCH (09:09)
[2025-06-11] MEDS: guaiFENesin 600 MG TABCR PO SCH (09:10)
[2025-06-11] MEDS: METOPROLOL SUCC 50MG EXT REL TAB PO SCH (09:10)
[2025-06-11] MEDS: FAMOTIDINE 20 MG TAB PO SCH (09:10)
[2025-06-11] MEDS: ADVANCED PROBIOTIC 625 MG CAPSULE PO SCH (09:10)
[2025-06-11] MEDS: VIBEGRON 75 MG TAB PO SCH (09:10)
--- NOTE | 2025-06-11 14:31 | Fluoroscopy Report ---
MODIFIED BARIUM SWALLOW CLINICAL HISTORY: r/o aspirationpneumonia COMPARISON STUDY: None FLUOROSCOPY TIME: 33 seconds. Ka,r: 1.8 mGy TECHNIQUE: A modified barium swallow was performed in conjunction with Speech Pathology. The patient ingested varying consistencies of barium containing material. Video fluoroscopy was performed. FINDINGS: The swallowing mechanics appear normal. There is no aspiration or penetration. Note is made of retained barium within the esophagus with mild disordered motility. Slight narrowing of the esoph agogastric junction cannot be excluded. IMPRESSION: 1. Normal swallowing mechanics. No aspiration or penetration 2. Retained barium within the esophagus with disordered motility and possible mild narrowing of the e sophagogastric junction ACT 112: Negative or not required by law. Electronically signed by: Cristhian Cheung M.D. 06/11/2025 2:30 PM
--- NOTE | 2025-06-11 16:50 | Hospitalist Progress Note ---
Date of Service June 11, 2025 Assessment & Plan (1) Right lower lobe pneumonia: (2) Leukocytosis: (3) Hypomagnesemia: (4) Obstructive sleep apnea: (5) T2DM (type 2 diabetes mellitus): (6) Chronic back pain: (7) Barretts esophagus: (8) Paroxysmal A-fib: Plan 80 yo F who presents with increased lethargy, chills, and dyspnea who is found to have a RLL pneumonia #RLL Pneumonia with leukocytosis / suspected aspiration / rhinovirus Droplet precautions Follow up blood cultures Continue Unasyn (suspect most likely aspiration with ongoing dysphagia), add azithromycin for atypical coverage (given IV due to prior intolerance with PO) Incentive spirometry, guaifenesin #Dysphagia Video swallow with SLT today - switched to soft bite sized as does not tolerate large bits of food Consult GI for dysphagia if concern for esophageal dysphagia #Ayala's esophagus - Continue famotidine - Change rabeprazole to pantoprazole per hospital formulary #Hypomagnesemia - Repleted, now 2.3, will repeat with AM labs as it redistributes intracellularly #Chronic Afib - S/P watchman, not on ACT - Follows with Dr. Rodriguez, [facility] [place] - Continue Metoprolol Succ 50mg daily - HR elevated in setting of acute infection, monitor #Chronic back pain/fibromyalgia - Continue Buprenorphine #Urge incontinence - Continue mirabegron VTE Prophylaxis - Lovenox 40mg sq daily (hold in AM incase going for EGD) Disposition - continue on med/tele until rates appear improved, PT/OT ordered Admission and Anticipated Discharge Date Admission Date: June 10, 2025 Subjective No cough or shortness of breath. Just felt very fatigued. Reports ongoing intermittent dysphagia with thicker foods. Reports having an EGD in 3 consecutive months last year for dysphagia but unsure if her esophagus was di lated at that time in [place]. Seen in conjunction with SLT at bedside with a breast of chicken for lunch and advised not to eat this. Physical Exam Constitutional: WD/WN, vitals as above Respiratory: normal respiratory effort; no respiratory distress Auscultation: + diminished lung sounds (right base) and + crackles (right base); no rales, no rhonchi and no wheezes Cardiovascular: Rate/Rhythm: + tachycardic and + irregularly irregular Heart Sounds: no murmur Extremities: normal capillary refill; no calf tenderness and no pedal edema Gastrointestinal (Abdomen): normal bowel sounds, soft, nontender, no hepatosplenomegaly Skin: no rashes, warm and dry Neurologic: moves all extremities and awake; not confused Psychiatric: A+Ox3, euthymic affect Results & Data Results & Data Vital Signs (Past 12 Hours) Vital Signs Temp Pulse Pulse Resp BP Pulse Ox O2 Del Method 06/11/25 15:23 111 H 15 85 L Room Air 06/11/25 11:35 85 15 95 Room Air 06/11/25 11:33 36.7 C 83 18 120/72 95 Room Air 06/11/25 07:49 61 06/11/25 07:49 Room Air 06/11/25 07:28 36.8 C 60 18 116/75 98 Room Air 06/11/25 07:20 68 16 95 Room Air FiO2 06/11/25 15:23 21 06/11/25 11:35 21 06/11/25 11:33 06/11/25 07:49 06/11/25 07:49 06/11/25 07:28 06/11/25 07:20 PG Care Time/CCT Total # of Minutes Spent Total Time Spent with Patient: Total time spent is greater than 50% in coordination of care (as documented) at patient's floor/unit and/or counseling patient: Coding Level of Care Code 85523 SUB INP/OBS CARE 2/35MIN Diagnoses Right lower lobe pneumonia J18.9 Leukocytosis D72.829 Hypomagnesemia E83.42 Obstructive sleep apnea G47.33 T2DM (type 2 diabetes mellitus) E11.9 Chronic back pain M54.9; G89.29 Barretts esophagus K22.70 Paroxysmal A-fib I48.0
[2025-06-11] MEDS: AZITHROMYCIN 500 MG/255 ML BAG IV SCH (17:44)
[2025-06-11] MEDS: MELATONIN 3 MG TAB PO PRN (20:28)
[2025-06-12 06:55] LABS: Hematocrit (blood only) 32.6 % (37.0-47.0); Hemoglobin 10.5 g/dl (12.0-16.0); Immature Granulocytes # (auto) 0.04 K/uL (0.01-0.20); Immature Granulocytes % (auto) 0.4 %; Mean Corpuscular Hemoglobin 27.6 pg (25.0-34.0); Mean Corpuscular Volume 85.8 fL (80.0-100.0); Platelet Count 195 K/uL (130-400); RDW Standard Deviation 45.4 fL (36.4-46.3); Red Blood Count 3.80 M/uL (4.20-5.40); White Blood Count 9.36 K/ul (4.8-10.8)
[2025-06-12 07:29] LABS: Anion Gap 6.0 (3-11); Blood Urea Nitrogen 12.0 mg/dl (6-23); Calcium 8.6 mg/dl (8.6-10.3); Carbon Dioxide 26.0 mmol/L (21-32); Chloride 108.0 mmol/L (98-107); Creatinine Clr Calc Pharmacy 49.3 ml/min; Glucose 97.0 mg/dl (70-99(Fasting)); Magnesium 1.9 mg/dl (1.7-2.4); Potassium 3.6 mmol/L (3.5-5.1); Sodium 140.0 mmol/L (136-145)
[2025-06-12 10:49] LABS: Bilirubin,Total 2.2 mg/dl (0.2-1.0)
--- NOTE | 2025-06-12 11:45 | Gastrointestinal Consultation ---
Date of Consultation June 12, 2025 Assessment & Plan (1) Esophageal dysphagia: Plan 80yowf with h/o Esophageal dysphagia, Achalasia s/p surgery 2016, T2DM, Asthma, Anxiety, Fibromyalgia, GERD, HTN, Depression, CADE is seen today on GI rounds for dysphagia. She has undergone treatment for Pneumonia and feeling better per patient. Leukocytosis has resolved. She reports ongoing issues with solid food dysphagia getting stuck in mid esophagus that has been present for years. She has a notable history of achalasia in 2016 s/p surgery. She did have an EGD in 2020 with dilation that helped for a period of time but she cannot recall the details of this. She underwent video swallow study which revealed retained barium suggestive of disordered motility and/or narrowing of GE junction. (1) Esophageal Dyspahgia - DDX - Dysmotility, Achalasia, Esophageal stricture/mucosal lesion. - Discussed benefits and risks of EGD. Patient would like to proceed with EGD. - Patient has been NPO since midnight. - We'll plan to add on for EGD today for further evaluation. Supervising Physician Co-Signing Physician Notes I personally saw and examined the patient. I have reviewed the chart and agree with the documentation provided by the ORTHOPEDIC MECHANIC including discussion about the assessment, treatment and plan. Briefly, 80yowf with h/o Esophageal dysphagia, Achalasia s/p surgery 2016, T2DM, Asthma, Anxiety, Fibromyalgia, GERD, HTN, Depression, CADE is seen today on GI rounds for dysphagia. She has undergone treatment for Pneumonia and feeling better per patient. Leukocytosis has resolved. She reports ongoing issues with solid food dysphagia getting stuck in mid esophagus that has been present for years. She has a notable history of achalasia in 2016 s/p surgery. She did have an EGD in 2020 with dilation that helped for a period of time but she cannot recall the details of this. She underwent video swallow study which revealed retained barium suggestive of disordered motility and/or narrowing of GE junction. At this point, she likely has a peristalsis of the esophagus given history of achalasia. She is status post some type of myotomy in the past. It is reasonable to do an EGD to make sure there is not a distal GE junction obstruction cancer or stricture. If any of this is present I am happy to dilate today. In the meantime n.p.o. and PPI History of Present Illness Reason for Consultation: Dysphagia Requesting Physician: Dr Olvera Attending Physician: Thelma Barrios MD History of Present Illness 80yowf with h/o T2DM, Asthma, Anxiety, Fibromyalgia, GERD, HTN, Depression, CADE is seen today on GI rounds for dysphagia for generalized weakness and fatigue where she reports wanting to sleep all the time for the past 24 hours. ER work up 06/10/25 revealed leukocytosis of 16.72k/ul. She had a patchy lower lobe infiltrate concerning for pneumonia. She was started on antibiotics and she reports has been feeling much better. Leukocytosis has resolved. She reports that her swallowing has been an issue for several years but is unclear of timing and details. Per chart review she underwent Achalasia surgery in 2015 at [facility] with Dr. Azul. She then underwent EGD in 2020 at [facility] with dilation for dysphagia which helped with her symptoms. Her last colonoscopy where in 2015 for melena/hematochezia. 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 No specimens collected. She denies any weight loss, vomiting, abdominal pain, N/V/D, melena or hematochezia. Social history - No tobacco, alcohol or tobacco use. Surgical history - EGD, Colonoscopy, Achalasia surgery. Familiy history - Denies any family history of colorectal CA, GI cancer, Celiac or IBD. However, a [facility] note mentions family history of CRC. Pertinent diagnostics - Modified Barium swallow - TECHNIQUE: A modified barium swallow was performed in conjunction with Speech Pathology. The patient ingested varying consistencies of barium containing material. Video fluoroscopy was performed. FINDINGS: The swallowing mechanics appear normal. There is no aspiration or penetration. Note is made of retained barium within the esophagus with mild disordered motility. Slight narrowing of the esophagogastric junction cannot be excluded. IMPRESSION: 1. Normal swallowing mechanics. No aspiration or penetration 2. Retained barium within the esophagus with disordered motility and possible mild narrowing of the esophagogastric junction EGD and Colonoscopies as noted above. CBC and ER diagnostics as noted above. Allergies Allergy/AdvReac Type Severity Reaction Status Date / Time amitriptyline Allergy Intermediate DIARRHEA Verified 04/10/25 10:45 AND ABD PAIN amoxicillin Allergy Intermediate DIARRHEA Verified 04/10/25 10:45 AND ABD PAIN cefuroxime Allergy Intermediate DIARRHEA Verified 04/10/25 10:45 AND ABD PAIN clavulanic acid Allergy Intermediate DIARRHEA Verified 04/10/25 10:45 AND ABD PAIN escitalopram [From Lexapro] Allergy Mild Dizziness Verified 04/10/25 10:45 adhesive Allergy Unknown SKIN RED Verified 04/10/25 10:45 AND WELTS clarithromycin Allergy Unknown SEVERE Verified 04/10/25 10:45 DIARRHEA AND ABD PAIN erythromycin base Allergy Unknown Unknown Verified 06/10/25 22:36 Macrolide Antibiotics Allergy Unknown SEVERE Verified 04/10/25 10:45 DIARRHEA AND ABD PAIN Sulfa (Sulfonamide Allergy Unknown RASH;DIFFICULTY Verified 04/10/25 10:45 Antibiotics) BREATHING tetracycline Allergy Unknown NAUSEA AND Verified 04/10/25 10:45 VOMITING Home Medications Medication Instructions Recorded Confirmed Type albuterol sulfate 2.5 mg/3 mL 2.5 mg inhalation Q4H PRN 05/21/19 06/10/25 History (0.083 %) solution for nebulization shortness of breath or wheezing cholecalciferol (vitamin D3) 50 2,000 units PO QAM 05/21/19 06/10/25 History mcg (2,000 unit) capsule metoprolol succinate 50 mg 50 mg PO DAILY 12/19/20 06/10/25 History tablet,extended release 24 hr albuterol sulfate 90 mcg/actuation See Rx Instructions inhalation 11/02/22 06/10/25 Rx aerosol inhaler (Ventolin HFA) .COMPLEX PRN shortness of breath or wheezing #18 grams rabeprazole 20 mg tablet,delayed 20 mg PO BID 12/31/22 06/10/25 History release (AcipHex) clonidine HCl 0.1 mg tablet 0.1 mg PO TID PRN withdrawl 10/18/24 06/10/25 History symptoms famotidine 20 mg tablet (Pepcid) 20 mg PO BID #180 tabs 04/09/25 06/10/25 Rx mirabegron 50 mg tablet,extended 50 mg PO DAILY #90 tabs 04/10/25 06/10/25 Rx release 24 hr (Myrbetriq) nitrofurantoin macrocrystal 50 mg 50 mg PO Q24H #30 caps 06/04/25 06/10/25 Rx capsule buprenorphine 300 mg/1.5 mL 300 mg subcut UD 10/20/25 10/20/25 History solution,exten.rel.subcutaneous syringe (Sublocade) buprenorphine HCl 8 mg sublingual 4 mg sublingual BID 06/10/25 06/10/25 History tablet vitamin B complex 1 tab PO DAILY 06/10/25 06/10/25 History Patient History Medical History History of non-ST elevation myocardial infarction (NSTEMI) (07/2019) History of TIA (transient ischemic attack) (12/2023) History of breast cancer Surgical History S/P cataract extraction (2023) History of hand surgery Status post right breast lumpectomy (2001) History of cardioversion History of esophageal surgery S/P arthroscopy of right shoulder S/P tonsillectomy and adenoidectomy S/P cholecystectomy History of appendectomy S/P total hysterectomy and BSO (bilateral salpingo-oophorectomy) S/P bunionectomy S/P left knee arthroscopy (2018) Presence of Watchman left atrial appendage closure device (2016) S/P breast lumpectomy (09/2017) Family History Sister Colorectal cancer Mother Cancer Father Bone cancer Daughter Rheumatoid arthritis Denies family history of Ovarian cancer Prostate cancer Myocardial infarction Breast cancer Lung cancer Social History Smoking Status: Former smoker Tobacco Type: Cigarettes Age Started Using Tobacco: 19; Age Quit Using Tobacco: 27; packs per day: 0.25; Cigarettes Per Day: smoked on/ off for; could not give year amount; Second Hand Exposure: No; Do You Dip or Chew Tobacco: No; Hx Alcohol Use: No Hx Substance Use: No Preferred Language: Kyrgyz Communication Ability: Effective Visual Impairment: No Limitations Hearing Ability: Normal Boat Canvas Installer Required: No Beliefs That Will Affect Care: None marital status: Current Living Situation: Spouse Current Living Situation Comment: with spouse current occupational status: retired 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 Alert. Answering questions appropriately. Respiratory: Breathing is even, non-labored. Lungs randolph are clear to auscultation anteriorly. Cardiovascular: Regular Rate and Rhythm, no murmurs, rubs or gallops appreciated. Gastrointestinal (Abdomen): Normoactive bowel sounds x4, soft, non-distended, non-tender. Musculoskeletal: Lying in bed comfortably. No peripheral edema. Results & Data Vital Signs (Past 12 Hours) Vital Signs Temp Pulse Pulse Resp BP Pulse Ox O2 Del Method 06/12/25 11:34 98.1 F 110 H 19 138/83 96 Room Air 06/12/25 11:12 106 H 16 93 Room Air 06/12/25 09:00 Room Air 06/12/25 08:00 99.1 F 108 H 18 124/77 93 Room Air 06/12/25 07:20 87 18 94 Room Air 06/12/25 03:39 98.2 F 76 18 93 Room Air 06/12/25 00:00 81 06/11/25 23:53 97.9 F 90 18 105/64 97 Room Air PG Care Time/CCT Total # of Minutes Spent Total Time Spent with Patient: Total time spent is greater than 50% in coordination of care (as documented) at patient's floor/unit and/or counseling patient: Coding Level of Care Code 85343 IN/OBS CONSULT LVL 3,45M Diagnoses Esophageal dysphagia R13.19
--- NOTE | 2025-06-12 13:19 | Anesthesiology Consultation ---
Date of Service June 12, 2025 Assessment & Plan Chart Review Chart Review: Acceptable Risk for Surgery Consults Requested none ASA ASA3 Proposed Anesthesia Anesthesia Type: MAC Risk / Benefits Reviewed With: PT / POA / Parent / Guardian, Accepts Plan and Informed Consent Obtained History Surgery Operation Date: 06/12/25 16:30 Proposed Procedures p Esophagogastroduodenoscopy Olamide - Kd Quiñonez MD Height/Weight Height: 5 ft 2 in Weight: 71.7 kg Allergies Allergy/AdvReac Type Severity Reaction Status Date / Time amitriptyline Allergy Intermediate DIARRHEA Verified 04/10/25 10:45 AND ABD PAIN amoxicillin Allergy Intermediate DIARRHEA Verified 04/10/25 10:45 AND ABD PAIN cefuroxime Allergy Intermediate DIARRHEA Verified 04/10/25 10:45 AND ABD PAIN clavulanic acid Allergy Intermediate DIARRHEA Verified 04/10/25 10:45 AND ABD PAIN escitalopram [From Lexapro] Allergy Mild Dizziness Verified 04/10/25 10:45 adhesive Allergy Unknown SKIN RED Verified 04/10/25 10:45 AND WELTS clarithromycin Allergy Unknown SEVERE Verified 04/10/25 10:45 DIARRHEA AND ABD PAIN erythromycin base Allergy Unknown Unknown Verified 06/10/25 22:36 Macrolide Antibiotics Allergy Unknown SEVERE Verified 04/10/25 10:45 DIARRHEA AND ABD PAIN Sulfa (Sulfonamide Allergy Unknown RASH;DIFFICULTY Verified 04/10/25 10:45 Antibiotics) BREATHING tetracycline Allergy Unknown NAUSEA AND Verified 04/10/25 10:45 VOMITING Medications Home Medications Medication Instructions Recorded Confirmed Last Taken albuterol sulfate 2.5 mg/3 mL 2.5 mg inhalation Q4H PRN 05/21/19 06/10/25 Unknown (0.083 %) solution for nebulization shortness of breath or wheezing cholecalciferol (vitamin D3) 50 2,000 units PO QAM 05/21/19 06/10/25 06/09/25 mcg (2,000 unit) capsule metoprolol succinate 50 mg 50 mg PO DAILY 12/19/20 06/10/25 06/09/25 tablet,extended release 24 hr albuterol sulfate 90 mcg/actuation See Rx Instructions inhalation 11/02/22 06/10/25 Unknown aerosol inhaler (Ventolin HFA) .COMPLEX PRN shortness of breath or wheezing #18 grams rabeprazole 20 mg tablet,delayed 20 mg PO BID 12/31/22 06/10/25 06/09/25 release (AcipHex) clonidine HCl 0.1 mg tablet 0.1 mg PO TID PRN withdrawl 10/18/24 06/10/25 Unknown symptoms famotidine 20 mg tablet (Pepcid) 20 mg PO BID #180 tabs 04/09/25 06/10/25 06/09/25 mirabegron 50 mg tablet,extended 50 mg PO DAILY #90 tabs 04/10/25 06/10/25 06/09/25 release 24 hr (Myrbetriq) nitrofurantoin macrocrystal 50 mg 50 mg PO Q24H #30 caps 06/04/25 06/10/25 06/09/25 capsule buprenorphine 300 mg/1.5 mL 300 mg subcut UD 06/10/25 06/10/25 06/06/25 solution,exten.rel.subcutaneous syringe (Sublocade) buprenorphine HCl 8 mg sublingual 4 mg sublingual BID 06/10/25 06/10/25 06/09/25 tablet vitamin B complex 1 tab PO DAILY 06/10/25 06/10/25 Unknown Active Medications Generic Name Dose Route Start Last Admin Trade Name Freq PRN Reason Stop Dose Admin Albuterol 3 ml 06/11/25 07:00 06/12/25 11:11 Albut/Ipratrop 3mg/0.5mg Neb 3 Ml Vial NEB 07/11/25 06:59 3 ml QIDR KATELIN Administration Protocol Buprenorphine HCl 4 mg 06/11/25 09:00 06/12/25 09:35 Buprenorphine Hcl 2 Mg Subl SL 07/11/25 08:59 4 mg BID KATELIN Administration Enoxaparin Sodium 40 mg 06/11/25 09:00 06/11/25 09:09 Enoxaparin Inj 40 Mg/0.4 Ml Syr SQ 07/11/25 08:59 40 mg Q24H KATELIN Administration Famotidine 20 mg 06/11/25 09:00 06/12/25 09:35 Famotidine 20 Mg Tab PO 07/11/25 08:59 20 mg BID KATELIN Administration Guaifenesin 600 mg 06/11/25 09:00 06/12/25 09:40 Guaifenesin 600 Mg Tabcr PO 07/11/25 08:59 Not Given Q12 KATELIN Ampicillin Sodium/Sulbactam Sodium 3,000 mg in 100 mls @ 200 mls/hr 06/11/25 06:00 06/12/25 12:36 Unasyn IV 06/16/25 05:59 Infused Q6H KATELIN Infusion Azithromycin 500 mg in 255 mls @ 127.5 mls/hr 06/11/25 17:15 06/11/25 20:28 Zithromax IV 06/14/25 17:14 Infused Q24H KATELIN Infusion Lactobacillus Acidophilus 1,250 mg 06/11/25 09:00 06/12/25 09:40 Advanced Probiotic 625 Mg Capsule PO 07/11/25 08:59 Not Given DAILY KATELIN Melatonin 3 mg 06/10/25 22:57 06/11/25 20:28 Melatonin 3 Mg Tab PO 07/10/25 22:56 3 mg HS PRN Administration Sleep Metoprolol Succinate 50 mg 06/11/25 09:00 06/12/25 09:23 Metoprolol Succ 50mg Ext Rel Tab PO 07/11/25 08:59 Not Given QAM KATELIN Pantoprazole Sodium 40 mg 06/11/25 09:00 06/12/25 09:41 Pantoprazole 40 Mg Tab PO 07/11/25 08:59 Not Given QAM KATELIN Vibegron 75 mg 06/11/25 09:00 06/12/25 09:23 Vibegron 75 Mg Tab PO 07/11/25 08:59 75 mg DAILY KATELIN Administration Past Medical History Medical History History of non-ST elevation myocardial infarction (NSTEMI) (07/2019) History of TIA (transient ischemic attack) (12/2023) History of breast cancer Exercise / Class Metabolic Activity III < 4 Walking/Shop/Light housework Past Family History Family History Sister Colorectal cancer Mother Cancer Father Bone cancer Daughter Rheumatoid arthritis Denies family history of Ovarian cancer Prostate cancer Myocardial infarction Breast cancer Lung cancer Past Surgical History Surgical History S/P cataract extraction (2023) b/l History of hand surgery L hand, 12/18/21, done by [facility], Left thumb trapeziectomy and mini tightrope suspensionplasty Status post right breast lumpectomy (2001) History of cardioversion History of esophageal surgery S/P arthroscopy of right shoulder S/P tonsillectomy and adenoidectomy S/P cholecystectomy History of appendectomy S/P total hysterectomy and BSO (bilateral salpingo-oophorectomy) S/P bunionectomy L foot S/P left knee arthroscopy (2018) Presence of Watchman left atrial appendage closure device (2016) S/P breast lumpectomy (09/2017) L breast Past Anesthesia History No Hx of Anesthesia Complications History of PONV No Hx of PONV Social History Smoking Status: Former smoker Smoking cigarettes per day: smoked on/ off for; could not give year amount Do You Dip or Chew Tobacco: No Hx Alcohol Use: No Hx Substance Use: No substance use type: does not use Physical Exam Vital Signs Last Vital Signs Temp 36.7 C 06/12/25 11:34 Pulse 110 H 06/12/25 11:34 Resp 19 06/12/25 11:34 BP 138/83 06/12/25 11:34 Pulse Ox 96 06/12/25 11:34 O2 Del Method Room Air 06/12/25 11:34 FiO2 21 06/11/25 15:23 Constitutional no acute distress ENMT Mouth: no TMJ abnormality Mallampati Class: II Neck normal visual inspection Respiratory normal respiratory effort Auscultation: lungs clear to auscultation bilaterally Cardiovascular Rate/Rhythm: regular rate Musculoskeletal Spine: normal cervical ROM Neurologic moves all extremities Psychiatric Orientation: alert and oriented x 3 Testing Laboratory Results 06/12/25 06:12 06/12/25 06:12 PT 11.9 Seconds (9.0-12.0) 06/10/25 21:11 INR 1.1 (0.9-1.1) 06/10/25 21:11 Urine Color Yellow 06/10/25 20:00 Urine Appearance Clear (Clear) 06/10/25 20:00 Urine pH 6.0 (4.5-7.5) 06/10/25 20:00 Ur Specific [place] 1.010 (1.000-1.030) 06/10/25 20:00 Urine Protein Negative (Negative) 06/10/25 20:00 Urine Glucose (UA) Negative (Negative) 06/10/25 20:00 Urine Ketones Negative (Negative) 06/10/25 20:00 Urine Nitrite Negative (Negative) 06/10/25 20:00 Ur Leukocyte Esterase Negative (Negative) 06/10/25 20:00 Urine WBC (Auto) 0-5 /hpf (0-5) 06/10/25 20:00 Urine RBC (Auto) 0-2 /hpf (0-2) 06/10/25 20:00 U Hyaline Cast (Auto) 0-2 /lpf (0-2) 06/10/25 20:00 U Epithel Cells (Auto) 0-2 /hpf (0-2) 06/10/25 20:00 Urine Bacteria (Auto) None Seen (None Seen) 06/10/25 20:00 06/10/25 23:13 Aerobic Blood Culture - Preliminary Blood No growth in Aerobic bottle after 24 hours. Anaerobic Blood Culture - Preliminary No growth in Anaerobic bottle after 24 hours. 06/10/25 23:22 Aerobic Blood Culture - Preliminary Blood No growth in Aerobic bottle after 24 hours. Anaerobic Blood Culture - Preliminary No growth in Anaerobic bottle after 24 hours.
--- NOTE | 2025-06-12 14:45 | History & Physical Bridge Note ---
Date of Service June 12, 2025 History & Physical Bridge Note I have examined the patient, reviewed the History & Physical and in the interval since the performance of the History & Physical I have noted the following changes of clinical significance: no changes noted Supervising Physician Co-Signing Physician Notes EGD done. The esophagus is dilated and no obvious peristalsis was noted. At the GE junction there is an ulceration present with a stricture. Prior findings of a pulm procedure were noted. The patient had a peroral myotomy done at [facility] for achalasia. Initially, CRE balloons 18 through 20 were used to dilate the stricture. Post the appearance of the stricture showed moderate disruption. Otherwise the endoscopy was relatively negative. She should be on PPI twice daily IV today and then by mouth. Start her on a diet and advance as tolerated.
--- NOTE | 2025-06-12 16:03 | GI REPORT ---
[facility] Patient: LOS MIKE : 1945 Sex at : Female Age: 80 Years Procedure: Upper GI endoscopy Date: 06/12/2025 Attending Physician: Kd Quiñonez MD Referring MD: Thelma Barrios Md Indications: - Dysphagia - Achalasia - s/p POEM at [facility] Medications: - Monitored Anesthesia Care Complications: - No immediate complications. Estimated Blood Loss: - Estimated blood loss: None. Procedure: - Prior to the procedure, a History and Physical was performed, and patient medications and allergies were reviewed. The patient's tolerance of previous anesthesia was also reviewed. The risks and benefits of the procedure and the sedation options and risks were discussed with the patient. All questions were answered, and informed consent was obtained. Prior Anticoagulants: The patient has taken no anticoagulant or antiplatelet agents. ASA Grade Assessment: III - A patient with severe systemic disease. After reviewing the risks and benefits, the patient was deemed in satisfactory condition to undergo the procedure. - The EGD scope was introduced through the mouth and advanced to the third part of the duodenum. - The upper GI endoscopy was accomplished without difficulty. - The patient tolerated the procedure well. Findings: - The lumen of the esophagus was moderately dilated. - One superficial esophageal ulcer with no stigmata of recent bleeding was found at the gastroesophageal junction. The lesion was less than one mm in largest dimension. - One benign-appearing, intrinsic mild stenosis was found at the gastroesophageal junction. This stenosis measured less than one cm (in length). The stenosis was traversed after dilation. A TTS dilator was passed through the scope. Dilation with an 18-19-20 mm balloon (to a maximum balloon size of 20 mm) dilator was performed 20 mm. The dilation site was examined following endoscope reinsertion and showed moderate improvement in luminal narrowing. - The entire examined stomach was normal. - The examined duodenum was normal. Impression: - Dilation in the entire esophagus. - Esophageal ulcer with no stigmata of recent bleeding. - Benign-appearing esophageal stenosis. Dilated with an 18-19-20 mm balloon (to a maximum balloon size of 20 mm). - Normal stomach. - Normal examined duodenum. - No specimens collected. Recommendation: - Discharge patient to home (ambulatory). - Resume previous diet. - Continue present medications. - Await pathology results. - Return to primary care physician as previously scheduled. - Patient has a contact number available for emergencies. The signs and symptoms of potential delayed complications were discussed with the patient. Return to normal activities tomorrow. Written discharge instructions were provided to the patient. - PPI IV twice daily to heal the ulcer and can start a diet and advance as tolerated. Procedure Code(s): - 31225, Esophagogastroduodenoscopy, flexible, transoral; with transendoscopic balloon dilation of esophagus (less than 30 mm diameter) Diagnosis Code(s): - R13.10, Dysphagia, unspecified - K22.0, Achalasia of cardia - K22.89, Other specified disease of esophagus - K22.10, Ulcer of esophagus without bleeding - K22.2, Esophageal obstruction CPT(R) - 2023 copyright [employer]. All Rights Reserved. The CPT codes, CCI edits and ICD codes generated are intended as suggestions and were generated based on input data. These codes are preliminary and upon certified procedural coder review may be revised to meet current compliance and payer requirements. The provider is responsible for the final determination of appropriate codes, and modifiers. Kd Quiñonez MD This document has been electronically signed. Note Initiated:06/12/2025 Note Completed:06/12/2025 4:02 PM \\[email or web address]\Central\InterfaceData\Data\Provation\Results\LIVE\[id number]
--- NOTE | 2025-06-12 16:42 | Hospitalist Progress Note ---
Date of Service June 12, 2025 Assessment & Plan (1) Right lower lobe pneumonia: (2) Leukocytosis: (3) Hypomagnesemia: (4) Barretts esophagus: Plan 80 yo F who presents with increased lethargy, chills, and dyspnea who is found to have a RLL pneumonia and rhinovirus. #RLL Pneumonia with leukocytosis / suspected aspiration / rhinovirus Droplet precautions Blood cultures negative x 24 hours Continue Unasyn (suspect most likely aspiration with ongoing dysphagia), azithromycin added for atypical coverage (given IV due to prior intolerance with PO) Incentive spirometry, guaifenesin Stable on room air #Dysphagia - Video swallow with SEROLOGIST - switched to soft bite sized as does not tolerate large bits of food - GI consulted for esophageal dysphagia - s/p EGD 06/12, no procedure note to review #Ayala's esophagus - Continue famotidine - Change rabeprazole to pantoprazole per hospital formulary #Hypomagnesemia - Repleted and remains stable #Chronic Afib - S/P watchman, not on ACT - Follows with Dr. Rodriguez, [facility] - Continue Metoprolol Succ 50mg daily - Elevated HR has resolved with further treatment of acute infection #Chronic back pain/fibromyalgia - Continue Buprenorphine #Urge incontinence - Continue mirabegron VTE Prophylaxis - Lovenox 40mg sq daily Disposition - Pending PT/OT evaluations Updated daughter at bedside Admission and Anticipated Discharge Date Admission Date: June 10, 2025 Supervising Physician Co-Signing Physician Notes AGATHA Supervision Note: I did not personally see or examine the patient today, but I verified all nolan points of AGATHA Barraza's assessment and plan with the following exceptions/additions: None Subjective Patient seen and evaluated at bedside with her daughter present. She had an EGD earlier today. Currently, she reports left sided rib pain. She reports she has been coughing, sometimes aggressively, but does not have any significant sputum production. She denies any sore throat or difficulty swallowing her saliva. She has not had a food since her procedure but does have a diet ordered so she should be receiving her meal tray shortly. She states that overall she feels like she is improving in the right direction. She denies any additional complaints or concerns at this time. Telemetry reviewed: A fib, rates 70-80s. Physical Exam Physical Exam: General: No acute distress, nondiaphoretic, well-developed, well-nourished. Skin: Warm, dry. No rashes or peripheral edema noted. Cardiac: A fib, rates in 80s. No murmur appreciated. Pulm: Crackles present in RLL. Diminished breath sounds in LLL. Otherwise sally ar to auscultation. Normal respiratory effort. 96% on room air. Abdominal: Soft, nontender, nondistended. Bowel sounds present. Neuro: A&O x3. No focal neurological deficits. Results & Data Results & Data Vital Signs (Past 12 Hours) Vital Signs Temp Pulse Pulse Resp BP Pulse Ox O2 Del Method 06/12/25 15:47 93 H 16 Room Air 06/12/25 15:33 98.2 F 89 18 126/86 96 Room Air 06/12/25 15:14 105 H 18 129/67 97 Room Air 06/12/25 14:59 93 H 16 96/71 L 92 Room Air 06/12/25 14:44 97 H 16 105/59 L 95 Room Air 06/12/25 14:33 98.2 F 102 H 16 102/62 100 Room Air 06/12/25 11:34 98.1 F 110 H 19 138/83 96 Room Air 06/12/25 11:12 106 H 16 93 Room Air 06/12/25 09:00 Room Air 06/12/25 08:00 99.1 F 108 H 18 124/77 93 Room Air 06/12/25 07:20 87 18 94 Room Air Laboratory Results Reviewed CBC with differential Reviewed BMP/chemistries PG Care Time/CCT Total # of Minutes Spent Total Time Spent with Patient: Total time spent is greater than 50% in coordination of care (as documented) at patient's floor/unit and/or counseling patient: Coding Level of Care Code 27668 SUB INP/OBS CARE 3/50MIN Diagnoses Right lower lobe pneumonia J18.9 Leukocytosis D72.829 Hypomagnesemia E83.42 Barretts esophagus K22.70
--- NOTE | 2025-06-12 16:53 | Anesthesiology Progress Note ---
Date of Service June 12, 2025 Anesthesia Post Procedure Vital Signs Vital Signs: Temp Pulse Pulse Pulse Resp BP Pulse Ox 06/12/25 15:47 93 H 16 06/12/25 15:33 36.8 C 89 18 126/86 96 06/12/25 15:14 105 H 18 129/67 97 06/12/25 14:59 93 H 16 96/71 L 92 06/12/25 14:44 97 H 16 105/59 L 95 06/12/25 14:33 36.8 C 102 H 16 102/62 100 06/12/25 11:34 36.7 C 110 H 19 138/83 96 06/12/25 11:12 106 H 16 93 06/12/25 09:00 06/12/25 08:00 37.3 C 108 H 18 124/77 93 06/12/25 07:20 87 18 94 06/12/25 03:39 36.8 C 76 18 93 06/12/25 00:00 81 06/11/25 23:53 36.6 C 90 18 105/64 97 06/11/25 20:19 18 95 06/11/25 19:38 37.1 C 94 H 18 109/73 98 06/11/25 19:15 O2 Del Method 06/12/25 15:47 Room Air 06/12/25 15:33 Room Air 06/12/25 15:14 Room Air 06/12/25 14:59 Room Air 06/12/25 14:44 Room Air 06/12/25 14:33 Room Air 06/12/25 11:34 Room Air 06/12/25 11:12 Room Air 06/12/25 09:00 Room Air 06/12/25 08:00 Room Air 06/12/25 07:20 Room Air 06/12/25 03:39 Room Air 06/12/25 00:00 06/11/25 23:53 Room Air 06/11/25 20:19 Room Air 06/11/25 19:38 Room Air 06/11/25 19:15 Room Air Pain Intensity Left Foot: Pain Intensity: 2 Transfer of Care Handoff Completed per policy Notes Mental Status: alert / awake / arousable Patient Amnestic to Procedure: Yes Nausea / Vomiting: adequately controlled Pain: adequately controlled Airway Patency, RR, SpO2: stable & adequate BP & HR: stable & adequate Hydration State: stable & adequate Anesthetic Complications: no major complications apparent and Pt Satisfied with anesthetic care
[2025-06-12] MEDS: LIDOCAINE 2% 2 ML VIAL/AMP(20MG/ML) INFIL ONE (16:59)
[2025-06-12] MEDS: PROPOFOL IV EMULSION 10 MG/ML 20 ML VIAL IV ONE (17:00)
[2025-06-12] MEDS: LIDOCAINE 5% 1 PATCH TD SCH (17:09)
[2025-06-12] MEDS: REMOVE LIDODERM PATCH SCH (20:06)
[2025-06-13 07:12] LABS: Hematocrit (blood only) 32.1 % (37.0-47.0); Hemoglobin 10.6 g/dl (12.0-16.0); Mean Corpuscular Hemoglobin 28.3 pg (25.0-34.0); Mean Corpuscular Volume 85.6 fL (80.0-100.0); Platelet Count 192 K/uL (130-400); RDW Standard Deviation 44.3 fL (36.4-46.3); Red Blood Count 3.75 M/uL (4.20-5.40); White Blood Count 5.97 K/ul (4.8-10.8)
[2025-06-13 07:26] LABS: Anion Gap 8.0 (3-11); Blood Urea Nitrogen 9.0 mg/dl (6-23); Calcium 8.5 mg/dl (8.6-10.3); Carbon Dioxide 24.0 mmol/L (21-32); Chloride 108.0 mmol/L (98-107); Creatinine Clr Calc Pharmacy 51.6 ml/min; Glucose 97.0 mg/dl (70-99(Fasting)); Potassium 3.6 mmol/L (3.5-5.1); Sodium 140.0 mmol/L (136-145)
--- NOTE | 2025-06-13 09:32 | Gastroenterology Progress Note ---
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 Today she is feeling well. (1) Esophageal Dysphagia - H/O Achalasia s/p repair 2016. EGD with Benign appear ing stenosis and ulcer on EGD. - Recommend ongoing PPI therapy with Pantoprazole 40mg BID. - Eating well today without any issues. - With h/o achalasia suspect she'll need ongoing f/u with repeat scope as clinically indicated. - Recommend that she f/u with her outside GI specialist for ongoing monitoring and care. - Thank you for allowing us to participate in the care of this patient. Please c all with any acute changes, questions or concerns. Please see addendum below with additional recommendation from my supervising physician. Admission and Anticipated Discharge Date Admission Date: June 10, 2025 Supervising Physician Co-Signing Physician Notes I personally saw and examined the patient. I have reviewed the chart and agree with the documentation provided by the CARE PROFESSIONAL including discussion about the assessment, treatment and plan. Briefly, doing better with eating. She is status post dilation. Noted to have an esophageal ulcer at GE junction. PPI twice daily for a week and then once daily for 3 months. She should follow-up either with us or her [facility] for achalasia and persistent dysphagia. She is tolerating a diet currently GI will sign off please call with any questions Subjective Patient seen today on follow up of GI rounds. She reports that she is feeling good. She was able to eat. No issues with swallowing during breakfast. EGD revealed a esophageal ulcer and benign appearing stenosis which was dilated from 18 to 20mm. Recommending ongoing treatment with BID PPI therapy, advance as tolerated. She denies any abdominal pain, N/V/D, melena or hematochezia this morning. Pertinent Diagnostics CBC reviewed. Hgb stable at 10.6 g/dl BMP reviewed. No azotemia. EGD 06/12/25 Impression: - Dilation in the entire esophagus. - Esophageal ulcer with no stigmata of recent bleeding. - Benign-appearing esophageal stenosis. Dilated with an 18-19-20 mm balloon (to a maximum balloon size of 20 mm). - Normal stomach. - Normal examined duodenum. - No specimens collected. Recommendation: - Discharge patient to home (ambulatory). - Resume previous diet. - Continue present medications. - Await pathology results. - Return to primary care physician as previously scheduled. - Patient has a contact number available for emergencies. The signs and symptoms of potential delayed complications were discussed with the patient. Return to normal activities tomorrow. Written discharge instructions were provided to the patient. - PPI IV twice daily to heal the ulcer and can start a diet and advance as tolerated. Review of Systems Review of Systems: See HPI Physical Exam Physical Exam: Constitutional: NAD. Alert. Answering questions appropriately. Respiratory: Breathing is even, non-labored. Lungs randolph are clear to auscultation anteriorly. Cardiovascular: Regular Rate and Rhythm, no murmurs, rubs or gallops appreciated. Gastrointestinal (Abdomen): Normoactive bowel sounds x4, soft, non-distended, non-tender. Musculoskeletal: Lying in bed comfortably. No peripheral edema. Results & Data Results & Data Vital Signs (Past 12 Hours) Vital Signs Temp Pulse Pulse Resp BP Pulse Ox O2 Del Method 06/13/25 07:31 99.0 F 119 H 18 121/68 96 Room Air 06/13/25 06:49 88 16 95 Room Air 06/13/25 04:29 98.2 F 86 18 126/81 95 Room Air 06/13/25 00:00 105 H 06/12/25 22:35 98.6 F 92 H 18 95/53 L 92 Room Air PG Care Time/CCT Total # of Minutes Spent Total Time Spent with Patient: Total time spent is greater than 50% in coordination of care (as documented) at patient's floor/unit and/or counseling patient: Coding Level of Care Code 79310 SUB INP/OBS CARE 235MIN Diagnoses Esophageal dysphagia R13.19
--- NOTE | 2025-06-13 12:30 | Hospitalist Progress Note ---
"Date of Service June 13, 2025 Assessment & Plan (1) Right lower lobe pneumonia: (2) Esophageal dysphagia: (3) Barretts esophagus: Plan 80 yo F who presented with increased lethargy, chills, and dyspnea and was found to have a RLL pneumonia and rhinovirus. Suspect pneumonia was caused by aspiration secondary to esophageal dysphagia. #RLL Pneumonia with leukocytosis | Suspected aspiration | Rhinovirus - Droplet precautions - Blood cultures negative > 48 hours - Continue Unasyn (suspect most likely aspiration with ongoing dysphagia), azithromycin added for atypical coverage (given IV due to prior intolerance with PO). Has multiple listed antibiotic allergies but can likely transition to Levaquin on discharge - Incentive spirometry, guaifenesin, DuoNebs QIDR - Stable on room air #Esophageal Dysphagia | Ayala's esophagus - Video swallow with WOOD CARVER - switched to soft bite sized as does not tolerate large bits of food - GI consulted - s/p EGD 06/12. EGD revealed 1 superficial esophageal ulcer with no stigmata of recent bleeding, benign-appearing esophageal stenosis s/p dilation - Continue famotidine - Continue Protonix 40 mg BID x 1 week, then continue on Protonix 40 mg once daily x 3 months #Hypomagnesemia - Repleted and remains stable #Chronic Afib - S/P watchman, not on ACT - Follows with Dr. Rodriguez, [facility] - Continue Metoprolol Succ 50mg daily - Elevated HR has resolved with further treatment of acute infection #Chronic back pain/fibromyalgia - Continue Buprenorphine #Urge incontinence - Continue mirabegron VTE Prophylaxis - Lovenox 40mg sq daily Disposition - anticipate discharge home with home health services in next 1-2 days. Downgraded off telemetry Admission and Anticipated Discharge Date Admission Date: June 10, 2025 Subjective Patient seen and evaluated at bedside. She reports feeling fatigued today. She describes a sensation of wanting to cough up phlegm but not being due to produce much sputum. She reports her swallowing is without difficulty for both breakfast and lunch. She denies any nausea or abdominal pain. Denies shortness of breath. We discussed potentially discharging home with oral antibiotics to complete her course for pneumonia today. She does not feel well enough to be discharged home at this time. No additional complaints or concerns at this time. Telemetry reviewed: A-fib [id number]. Stable on telemetry without acute events, will downgrade off telemetry. Physical Exam Physical Exam: General: No acute distress, nondiaphoretic, well-developed, well-nourished. Skin: Warm, dry. No rashes or peripheral edema noted. Cardiac: A fib, rates in 90s. No murmur appreciated. Pulm: Rhonchi present in bases bilaterally. Otherwise clear to auscultation. No wheezing or crackles appreciated. Normal respiratory effort. 97% on room air. Abdominal: Soft, nontender, nondistended. Bowel sounds present. Neuro: A&O x3. No focal neurological deficits. Results & Data Results & Data Vital Signs (Past 12 Hours) Vital Signs Temp Pulse Resp BP Pulse Ox O2 Del Method 06/13/25 12:07 98.1 F 102 H 18 115/70 97 Room Air 06/13/25 10:25 84 18 92 Room Air 06/13/25 07:31 99.0 F 119 H 18 121/68 96 Room Air 06/13/25 06:49 88 16 95 Room Air 06/13/25 04:29 98.2 F 86 18 126/81 95 Room Air Laboratory Results Reviewed CBC Reviewed BMP Reviewed blood cultures PG Care Time/CCT Total # of Minutes Spent Total Time Spent with Patient: Total time spent is greater than 50% in coordination of care (as documented) at patient's floor/unit and/or counseling patient: Coding Level of Care Code 73739 SUB INP/OBS CARE 2/35MIN Diagnoses Right lower lobe pneumonia J18.9 Esophageal dysphagia R13.19 Barretts esophagus K22.70"
[2025-06-13] MEDS: LIDOCAINE 5% 1 PATCH TD SCH (21:01)
[2025-06-14] MEDS: REMOVE LIDODERM PATCH SCH (09:29)
--- NOTE | 2025-06-14 12:14 | Hospitalist Progress Note ---
"Date of Service June 14, 2025 Assessment & Plan (1) Right lower lobe pneumonia: (2) Esophageal dysphagia: (3) Barretts esophagus: Plan 80 yo F who presented with increased lethargy, chills, and dyspnea and was found to have a RLL pneumonia and rhinovirus. Suspect pneumonia was caused by aspiration secondary to esophageal dysphagia. #RLL Pneumonia with leukocytosis | Suspected aspiration | Rhinovirus - Droplet precautions - Blood cultures negative > 48 hours - Continue Unasyn (suspect most likely aspiration with ongoing dysphagia), azithromycin added for atypical coverage (given IV due to prior intolerance with PO). Has multiple listed antibiotic allergies but can likely transition to Levaquin on discharge - Incentive spirometry, guaifenesin, DuoNebs QIDR PRN - Stable on room air - Developed expiratory wheeze 06/14 - asked respiratory to provide DuoNeb and ordered prednisone 50 mg PO x 1 #Esophageal Dysphagia | Ayala's esophagus - Video swallow with LUNCHROOM SUPERVISOR - switched to soft bite sized as does not tolerate lar ge bits of food - GI consulted - s/p EGD 06/12. EGD revealed 1 superficial esophageal ulcer with no stigmata of recent bleeding, benign-appearing esophageal stenosis s/p dilation - Continue famotidine - Continue Protonix 40 mg BID x 1 week, then continue on Protonix 40 mg once daily x 3 months #Chronic Afib - S/P watchman, not on ACT - Follows with Dr. Rodriguez, [facility] - Continue Metoprolol Succ 50mg daily - Elevated HR has resolved with further treatment of acute infection #Hypomagnesemia - Repleted and remains stable #Chronic back pain/fibromyalgia - Continue Buprenorphine #Urge incontinence - Continue mirabegron VTE Prophylaxis: Lovenox 40mg sq daily Disposition: Anticipate discharge home with home health services in next 1-2 days. Ordered Prednisone Discussed with respiratory team Admission and Anticipated Discharge Date Admission Date: June 10, 2025 Subjective Patient seen and evaluated in bedside chair while eating lunch. She is not h aving any difficulty with swallowing her food. She does note she has started expectorating sputum. We discussed that given how her lungs sounded on auscultation, I will have the respiratory therapist come provide a breathing treatment and also give her a dose of oral prednisone. She still does not feel ready to be discharged home; I agree with continued inpatient stay. She denies any additional complaints or concerns at this time. Physical Exam Physical Exam: General: No acute distress, nondiaphoretic, well-developed, well-nourished. Skin: Warm, dry. No rashes or peripheral edema noted. Cardiac: A fib, rates in 90s. No murmur appreciated. Pulm: Rhonchi present in bases bilaterally. Expiratory wheeze noted throughout. Normal respiratory effort. 94% on room air. Abdominal: Soft, nontender, nondistended. Bowel sounds present. Neuro: A&O x3. No focal neurological deficits. Results & Data Results & Data Vital Signs (Past 12 Hours) Vital Signs Temp Pulse Resp BP Pulse Ox O2 Del Method 06/14/25 10:49 98.1 F 74 19 123/74 94 Room Air 06/14/25 09:48 Nasal Cannula 06/14/25 07:12 98.2 F 79 19 131/78 94 Room Air PG Care Time/CCT Total # of Minutes Spent Total Time Spent with Patient: Total time spent is greater than 50% in coordination of care (as documented) at patient's floor/unit and/or counseling patient: Coding Level of Care Code 85273 SUB INP/OBS CARE 3/50MIN Diagnoses Right lower lobe pneumonia J18.9 Esophageal dysphagia R13.19 Barretts esophagus K22.70"
[2025-06-14] MEDS: ALBUT/IPRATROP 3MG/0.5MG NEB 3 ML VIAL NEB STA (15:18)
[2025-06-14] MEDS: ALBUT/IPRATROP 3MG/0.5MG NEB 3 ML VIAL NEB PRN (19:24)
--- NOTE | 2025-06-14 19:44 | Electrocardiogram Report ---
Test Reason : Blood Pressure : */* mmHG Vent. Rate : 103 BPM Atrial Rate : * BPM P-R Int : * ms QRS Dur : 94 ms QT Int : 320 ms P-R-T Axes : * 44 5 degrees QTcB Int : 419 ms Atrial fibrillation with rapid ventricular response Abnormal ECG When compared with ECG of 25-Apr-2024 17:16, Vent. rate has increased by 41 bpm Confirmed by Taran Tejeda ([id number]) on 06/14/2025 7:43:21 PM Referred By: REFERRED SELF Confirmed By: Taran Tejeda
[2025-06-15 07:57] VITALS: BP 118/72; TEMP 98.1
[2025-06-15 12:46] VITALS: PULSE 93; RESP 18; O2SAT 93
--- NOTE | 2025-06-15 13:04 | Discharge Summary ---
"Discharge Summary Date of Service June 15, 2025 Principal Dx & Hospital Course #1 = Principal Diagnosis (1) Right lower lobe pneumonia: (2) Esophageal dysphagia: (3) Barretts esophagus: Plan 80 yo F who presented with increased lethargy, chills, and dyspnea and was found to have a RLL pneumonia and rhinovirus. Suspect pneumonia was caused by aspiration secondary to esophageal dysphagia. #RLL Pneumonia | Suspected aspiration | Rhinovirus - Blood cultures negative > 48 hours - Received DuoNebs QID and Mucinex twice daily while hospitalized. Can continue using albuterol nebulizer and Ventolin inhaler at home as well as [id number] Mucinex as needed - Treated with Unasyn (suspect most likely aspiration with ongoing dysphagia), azithromycin added for atypical coverage (given IV due to prior intolerance with PO) while admitted. 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 EGD revealed 1 superficial esophageal ulcer with no stigmata of recent bleeding, benign-appearing esophageal stenosis s/p dilation - Continue famotidine - Continue Protonix 40 mg BID x 1 week total, then continue on Protonix 40 mg once daily x 3 months #Chronic Afib - S/P watchman, not on ACT - Follows with Dr. Rodriguez, [facility] - Continue Metoprolol Succ 50mg daily - Elevated HR has resolved with further treatment of acute infection #Hypomagnesemia - Repleted and remains stable #Chronic back pain/fibromyalgia - Continue Buprenorphine #Urge incontinence - Continue mirabegron VTE Prophylaxis: Lovenox 40mg sq daily Disposition: Discharged home with home health services 06/15 Notes For Next Care Provider Patient should follow-up with her outpatient GI specialist within the next 3 months to follow-up on esophageal ulcer identified on EGD as well as monitoring dysphagia symptoms as she is s/p dilation during her EGD. Medication Changes From Visit Levaquin 750 mg daily x 2 days Medrol Dosepak Protonix 40 mg twice daily x 5 more days, then once daily x 3 months Admission HPI Per Admitting Provider Crissy is an 80 yo F with a pmhx of chronic afib, DMT2 (diet controlled), [place] tt's esophagus, chronic back pain, CADE, asthma and recurrent cystitis who presents to the ER accompanied by her family c/o increased lethargy over the past 48 hours. Pt reportedly notes increased fatigue, drowsiness over the past 48 hours. She has had c/o chills and increased dyspnea with exertional activities, but denies chest pain. She reports her has had a cough but she has not. She has not checked her temperature so is unsure if she actually had a true fever. She did endorse some GI illness including n/v about 2 weeks ago but none recently. She has a h/o Ayala's esophagus and underwent surgery in 2017. She has also had her esophagus dilated about 1 year ago and admittedly has some issues with swallowing and choking at times. In the ER this evening, she has a RLL infiltrate favoring infection as well as a leukocytosis with neutrophilic predominance and an elevated PCT. She was medicated with Zosyn and Doxycycline IV in the ER as well as received a dose of IV Ofirmev and NSS. She has been referred to hospital medicine team for further care. Discharge Exam General: No acute distress, nondiaphoretic, well-developed, well-nourished. Skin: Warm, dry. No rashes or peripheral edema noted. Cardiac: A fib, rates in 90s. No murmur appreciated. Pulm: Rhonchi no longer appreciated. Mild expiratory wheeze noted throughout, improved from yesterday. Normal respiratory effort. 93% on room air. Abdominal: Soft, nontender, nondistended. Bowel sounds present. Neuro: A&O x3. No focal neurological deficits. Discharge Plan Discharge Items Patient Disposition: Home - Home Health Services Reason For Visit: RLL PNA Discharge Diagnosis: Pneumonia, rhinovirus, esophageal dysphagia s/p EGD with esophageal dilation, esophageal ulcer Condition on Discharge: Fair Activity: Resume your previous activity Non-emergency contact: Primary Care Provider Call non-emergency contact if: you have any medication questions, your symptoms worsen and you have a fever Follow-up/Referrals: Ga Agarwal DO [Primary Care Provider] - (Follow-up in 1-2 weeks) Diet: Low Fiber Diet Texture: Dental soft (bite-sized) Addtl Attending Provider Instructions: Crissy, You were admitted to the hospital due to pneumonia and rhinovirus. You were treated with IV antibiotics and additional supportive measures while in the hospital, and will continue on treatment at home to complete your course. You were evaluated by the speech therapist and GI teams as well during your hospital stay. You had an EGD which showed an esophageal ulcer and you had esophageal dilation performed. Upon discharge from the hospital: * Take Levaquin (oral antibiotic) once daily x 2 additional days starting tomorrow 06/16. This is to complete your antibiotic course for your pneumonia infection. Side effects of oral antibiotics include GI upset. I recommend taking your antibiotic with food to prevent any associated nausea/vomiting/diarrhea. * Take the Medrol Dosepak (oral steroids) as directed on the package insert. This will improve your wheezing. * Take Protonix 40 mg twice daily x 5 additional days, then continue on Protonix 40 mg once daily x 3 months. * Hold your nitrofurantoin (the antibiotic you take to prevent recurrent UTIs) until 06/18 while you are on Levaquin. After finishing your course of Levaquin, you can resume taking your nitrofurantoin. * Continue to use your albuterol nebulizer and Ventolin inhaler as needed for shortness of breath/wheezing. * Follow-up with your PCP in 1-2 weeks. * Follow-up with your usual GI specialist within the next 3 months. Please return to the hospital if you experience any of the following: Fever of 101 F or higher while on antibiotics, worsening wheezing/shortness of breath, difficulty breathing, chest pain, persistent nausea with vomiting, lightheadedness/dizziness, passing out, confusion, or any other symptoms concerning for you. It was a pleasure taking care of you while you were in the hospital, Umu Barraza PA-C Pending Studies at Discharge: No Stand-Alone Forms: [facility] [employer], Smoking Cessation Medications and DC Order Prescriptions: New pantoprazole 40 mg Tablet,Delayed Release (Dr/Ec) 40 mg PO UD Qty: 30 0RF Rx Instructions: Take pantoprazole 40 mg twice daily x 5 additional days, then continue on once daily dosing moving forward. levofloxacin 750 mg tablet 750 mg PO DAILY Qty: 2 0RF methylprednisolone [Medrol (Florian)] 4 mg tablets,dose pack 4 mg PO UD Qty: 21 0RF Rx Instructions: Follow taper instructions on package insert. Continued albuterol sulfate [Ventolin HFA] 90 mcg/actuation HFA aerosol inhaler See Rx Instructions INH .COMPLEX PRN (Reason: shortness of breath or wheezing) Qty: 18 1RF Rx Instructions: Inhale 1-2 puffs inhalation every 4-6 hrs PRN sob/wheezing famotidine [Pepcid] 20 mg tablet 20 mg PO BID Qty: 180 3RF rabeprazole [AcipHex] 20 mg tablet,delayed release (DR/EC) 20 mg PO BID albuterol sulfate 2.5 mg /3 mL (0.083 %) solution for nebulization 2.5 mg inhalation Q4H PRN (Reason: shortness of breath or wheezing) cholecalciferol (vitamin D3) 2,000 unit capsule 2,000 units PO QAM metoprolol succinate 50 mg tablet extended release 24 hr 50 mg PO DAILY mirabegron [Myrbetriq] 50 mg tablet extended release 24 hr 50 mg PO DAILY Qty: 90 3RF Rx Instructions: Monitor for headache, elevated BP, nausea, vomiting clonidine HCl 0.1 mg tablet 0.1 mg PO TID PRN (Reason: withdrawl symptoms) buprenorphine HCl 8 mg tablet, sublingual 4 mg SUBLINGUAL BID vitamin B complex Tablet 1 tab PO DAILY Sublocade 300 mg/1.5 mL solution, extended rel syringe 300 mg SUBCUT UD Held nitrofurantoin macrocrystal 50 mg capsule 50 mg PO Q24H Qty: 30 11RF Hold Instructions: Resume on 06/18/25. Rx Instructions: must administer with a meal/food Discharge Orders: Discharge Order (Routine); Ordered 06/15/25 Ordered By: Umu Barraza Admission Data Admit Date/Time: 06/10/25 22:24 Attending Provider: Jeyson Muhammad Admit Provider: Hima Ponce Primary Care Provider: Ga Agarwal Other Providers: Hima Ponce; Kd Quiñonez; [facility] Hospital Stay Data Consultations 06/10/25 21:55 ED Decision to Admit Stat 06/12/25 06:09 Consult Gastroenterology Routine Procedures Performed Operation Date: 06/12/25 16:30 Actual Procedures p EGD Dilatation - Kd Quiñonez MD Diagnostic Imagining Performed Chest X-Ray 06/10/25 19:20 Chest radiograph, one view History: Chest pain Comparison: 04/25/2024 Findings: Single AP view of the chest performed. Cardiomegaly. There are new mild patchy nodular densities in the right lower lobe. Normal pulmonary vascularity. No evidence for lymphadenopathy. No visualized bony or soft tissue abnormality. Impression: New, mild patchy nodular densities in the right lower lobe, favored infectious. Electronically signed by Barrett Casey 06-10-2025 7:50 PM Videofluoroscopic Swallow 06/11/25 13:30 MODIFIED BARIUM SWALLOW CLINICAL HISTORY: r/o aspirationpneumonia COMPARISON STUDY: None FLUOROSCOPY TIME: 33 seconds. Ka,r: 1.8 mGy TECHNIQUE: A modified barium swallow was performed in conjunction with Speech Pa thology. The patient ingested varying consistencies of barium containing material. Video fluoroscopy was performed. FINDINGS: The swallowing mechanics appear normal. There is no aspiration or penetration. Note is made of retained barium within the esophagus with mild disordered motility. Slight narrowing of the esophagogastric junction cannot be excluded. IMPRESSION: 1. Normal swallowing mechanics. No aspiration or penetration 2. Retained barium within the esophagus with disordered motility and possible mild narrowing of the esophagogastric junction ACT 112: Negative or not required by law. Electronically signed by: Cristhian Cheung M.D. 06/11/2025 2:30 PM Pending Results Patient Have Any Pending Studies at Discharge: No Discharge Instructions Given to Patient (Per Discharging Provider) Crissy, You were admitted to the hospital due to pneumonia and rhinovirus. You were treated with IV antibiotics and additional supportive measures while in the hospital, and will continue on treatment at home to complete your course. You were evaluated by the speech therapist and GI teams as well during your hospital stay. You had an EGD which showed an esophageal ulcer and you had esophageal dilation performed. Upon discharge from the hospital: * Take Levaquin (oral antibiotic) once daily x 2 additional days starting tomorrow 06/16. This is to complete your antibiotic course for your pneumonia infection. Side effects of oral antibiotics include GI upset. I recommend taking your antibiotic with food to prevent any associated nausea/vomiting/diarrhea. * Take the Medrol Dosepak (oral steroids) as directed on the package insert. This will improve your wheezing. * Take Protonix 40 mg twice daily x 5 additional days, then continue on Protonix 40 mg once daily x 3 months. * Hold your nitrofurantoin (the antibiotic you take to prevent recurrent UTIs) until 06/18 while you are on Levaquin. After finishing your course of Levaquin, you can resume taking your nitrofurantoin. * Continue to use your albuterol nebulizer and Ventolin inhaler as needed for shortness of breath/wheezing. * Follow-up with your PCP in 1-2 weeks. * Follow-up with your usual GI specialist within the next 3 months. Please return to the hospital if you experience any of the following: Fever of 101 F or higher while on antibiotics, worsening wheezing/shortness of breath, difficulty breathing, chest pain, persistent nausea with vomiting, lightheadedness/dizziness, passing out, confusion, or any other symptoms concerning for you. It was a pleasure taking care of you while you were in the hospital, Umu Barraza PA-C Total Time Total Time Spent Total Time Spent (In Minutes): Greater than 30 minutes spent completing this discharge process including direct patient care, medication reconciliation, documentation, review of labs and i mages, and coordination of care. Coding Level of Care Code 07354 INP/OBS DISCH >30 MIN Diagnoses Right lower lobe pneumonia J18.9 Esophageal dysphagia R13.19 Barretts esophagus K22.70"
== END 2025-06-15 13:58 | disposition home health service (06) | DRG 194 ==
LOC: ED 18:57 → SUATTDRO 22:24 → EDINP 22:24 → 2S 22:57 → 3E 06-15 05:25